=== PATIENT | female | born 1955 | race Caucasian/White ===

== ENCOUNTER → 2024-01-10 16:43 | Outpatient (REF) | payer BC, SELFPAY ==
[2024-01-10 17:32] LABS: % Eosinophils 1.8 % (0-6); % Immature Granulocytes 3.9 % (0-0.5); % Lymphocytes 15.1 % (20.5-51.1); % Monocytes 15.5 % (1.7-9.3); % Neutrophils 62.7 % (42.2-75.2); Absolute Basophils 0.1 10^3/uL (0-0.2); Absolute Eosinophils 0.1 10^3/uL (0-0.7); Absolute Immature Granulocytes 0.3 10^3/uL (0-0.05); Absolute Neutrophils 4.2 10^3/uL (1.4-6.5); Hematocrit 40.1 % (37.0-47.0); Hemoglobin 12.8 g/dL (12.0-16.0); Mean Corp Hgb Conc. 31.9 g/dL (33.0-37.0); Mean Corpuscular Hgb 28.8 pg (27.0-31.0); Mean Corpuscular Volume 90.3 fL (81.0-99.0); Mean Platelet Volume 10.7 fL (7.4-10.4); Nucleated Red Blood Cells % 0 %; Platelet Count 209 10^3/uL (130-400); Red Blood Cell Count 4.44 10^6/uL (4.20-5.40); Red Cell Dist. Width 14.5 % (11.5-14.5); White Blood Cell Count 6.7 10^3/uL (4.8-10.8)
== END ==
LOC: REG 16:43
PROVIDERS: FAMILY PHYSICIAN Family Medicine
DX: Z01.818 Encounter for other preprocedural examination (principal)
CPT/HCPCS: 36415; 85025

== ENCOUNTER 2024-01-15 20:50 | Emergency (ER) | payer BC, SELFPAY ==
[2024-01-15 20:52] VITALS: BP 161/90
[2024-01-15 21:21] VITALS: BMI 24.2
--- NOTE | 2024-01-15 21:33 | ED.GENMED ---
History of Present Illness
General
Chief Complaint: Swelling
Source: patient and spouse
Exam Limitations: none
Time Seen by Provider: 01/15/24 21:27
Nursing documentation reviewed up to this point in time: agreed with
History of Present Illness
History of Present Illness:
68-year-old female presents emergency department complaining of left leg swelling after breast augmentation 3 days ago in [facility]. She denies chest pain or shortness of breath. states there was a black and blue area on the back of
left knee.
Past History
Past History
ED Past Medical History: GERD (w/ ulcer), Other (Multiple sclerosis, multiple right-sided rib fractures with pneumothorax 2005) and Other (osteoarthritis, migraine headaches, neuropathy)
ED Past Surgical History: Appendectomy
Social History
Tobacco: Non-smoker
Alcohol: Occasional
Personal:
Living: with family
Employment: Employed
Family History
Family History: Other (Nontender)
Review of Systems
Review of Systems
Allergies reviewed?: Yes
All Other Systems: Not applicable
Constitutional: Reports no symptoms
EENT: Reports no symptoms
Respiratory: Reports no symptoms
Cardiac: Reports no symptoms
ABD/GI: Reports no symptoms
: Reports no symptoms
Musculoskeletal: Reports edema
Skin: Reports no symptoms
Neurological: Reports no symptoms
Endocrine: Reports no symptoms
Hematologic/Lymphatic: Reports no symptoms
Psychiatric: Reports no symptoms
Phy Exam
Physical Exam
Physical Exam:
Physical Exam
General: no apparent distress, not acutely ill
Neck: supple. no meningeal signs. normal posterior pharynx
Heart: s1/s2 regular rate and rhythm, no murmur. equal radial
pulses.
HEENT: Pupils equal round reactive to light, EOMI
Lungs: no acute respiratory distress. clear bilaterally
Abdomen: normal bowel sounds. not tender. no CVAT
Neuro: alert and oriented. no focal neurological deficits cranial nerves II through XII intact
Skin: no rash
Psychiatric: well kept. interactive and cooperative
Extremities: Mild bilateral pedal edema. no calf tenderness. negative homans. good distal pulses
Scores
Heart Failure Risk
Heart Failure Risk Score: Not Applicable
Course
Orders/Labs/Results
Orders:
Orders
01/15/24 20:54
US Legs, Bilateral [US Periph Venous LOWER Ext Max] Urgent
Comment:
Reason For Exam: b/l leg swelling and recent surgery
Vital Signs
Initial and Last Documented VS:
Initial Vital Signs
Temp Pulse Resp BP Pulse Ox
98.3 F 100 20 161/90 98
01/15/24 20:52 01/15/24 20:52 01/15/24 20:52 01/15/24 20:52 01/15/24 20:52
Last Documented Vital Signs
Temp Pulse Resp BP Pulse Ox
98.3 F 98 20 141/99 98
01/15/24 20:52 01/15/24 22:54 01/15/24 20:52 01/15/24 22:54 01/15/24 22:54
MDM/Problems Addressed
Differential Diagnosis Includes:
DVT, CHF
MDM/Problems Addressed:
68-year-old female with bilateral pedal edema, no signs of DVT. Clear lungs, no shortness of breath. Stable for discharge. Suspect dependent edema.
*Radiology
Radiology exam reviewed: radiology read reviewed (Ultrasound bilateral lower extremities no DVT)
*Pulse Oximetry
Patient hypoxic: no
*EKG
Interpreted by ED Provider?: NA
*Checkroom Attendant Interpretation
Rate: Checkroom Attendant- N/A
*Critical Care Note
Total Time (30-74mins, 75-104mins- exclusive of procedures): Not Applicable
Patient Management
Social determinants of health affecting care: Living situation and Strong social support
Escalation/DeEscalation of care consider admission/obs:
Admit not indicated
ED Attending Note
-
Portions of this chart may have been created with voice recognition software.� Occasional wrong word or��sound alike� substitutions may have occurred due to the inherent limitations of voice recognition software.
Discharge Plan
Departure
Patient Disposition: Home (Routine Discharge)
Date of Disposition: 01/15/24
Time of Disposition: 23:09
Patient with high blood pressure during this ER visit?: Yes
Condition: Good
Discharge Problem:
Dependent edema
Instructions: Dependent Edema (DC), BLOOD PRESSURE
Prescriptions:
No Action
Prempro
1 tab PO DAILY
Patient Comments:
pt does not know mg
Vitamin D
1 tab PO DAILY
Patient Comments:
pt does not know mg
multivitamin Tablet
1 tab PO DAILY
gabapentin 100 mg Capsule
100 mg PO HS
Vesicare
1 tab PO DAILY
Patient Comments:
pt does not know mg
Vitamin C
1 tab PO DAILY
Patient Comments:
pt does not know mg
calcium
1 tab PO DAILY
Patient Comments:
pt does not know mg
rizatriptan
1 tab PO PRN PRN (Reason: migraines)
Patient Comments:
pt does not know mg
ketorolac 10 mg Tablet
10 mg PO TID
oxycodone-acetaminophen 5-325 mg Tablet
1 - 2 tab PO Q4H PRN (Reason: pain)
cephalexin [Keflex] 500 mg Capsule
500 mg PO BID
Referrals:
Griffin Avila MD [Family Provider] - Call in 1-3 days for appt
Interventions
Interventions:
*Risk Screen - Suicide Last Done: 01/15/24 20:52
*General Assessment Last Done: 01/15/24 20:52
*Neglect/Abuse Screening Last Done: 01/15/24 20:52
*ED COVID-19 Vaccine History Last Done: 01/15/24 21:12
ED- Cardiac Assessment Last Done: 01/15/24 23:05
ED- Pulmonary Assessment Last Done: 01/15/24 21:27
ED-Skin Assessment Last Done: 01/15/24 21:27
Discharge Date and Time
Print Language: SYRIAC
[2024-01-15 22:54] VITALS: BP 141/99
[2024-01-15 23:17] VITALS: BP 134/96
== END 2024-01-15 23:26 | disposition home or self-care (01) ==
LOC: EMR 20:50
PROVIDERS: EMERGENCY PHYSICIAN Emergency Medicine; FAMILY PHYSICIAN Family Medicine
DX: R60.0 Localized edema (principal); R03.0 Elevated blood-pressure reading, without diagnosis of hypertension
CPT/HCPCS: 99284; 93970

== ENCOUNTER 2024-06-17 01:44 | Emergency (ER) | payer SELFPAY ==
[2024-06-17 01:49] VITALS: BP 155/85
[2024-06-17 04:19] VITALS: BMI 29.8
[2024-06-17 05:00] VITALS: BP 152/75
[2024-06-17] MEDS: MOTRIN 600 MG PO (06:55)
--- NOTE | 2024-06-17 06:55 | ED.GENMED ---
History of Present Illness
General
Chief Complaint: Fall
Source: patient and spouse
Time Seen by Provider: 06/17/24 06:02
History of Present Illness
History of Present Illness:
68-year-old female who presents after she fell about an hour prior to arrival. She states she cannot felt her left side and then her head went back. She suspect she did strike her head. Complains of some neck pain, pain in her left elbow and
contusion to the left hip. No loss of consciousness. States she just lost her balance. Mostly came to evaluate the wound on her left elbow. states that he was concerned about the laceration
Past History
Past History
ED Past Medical History: GERD (w/ ulcer), Other (Multiple sclerosis, multiple right-sided rib fractures with pneumothorax 2005) and Other (osteoarthritis, migraine headaches, neuropathy)
ED Past Surgical History: Appendectomy
Social History
Tobacco: Non-smoker
Alcohol: Occasional
Personal:
Living: with family
Employment: Employed
Family History
Family History: Other (Nontender)
Phy Exam
Physical Exam
Physical Exam:
CONSTITUTIONAL Vital signs reviewed, Patient alert and oriented to person, place and time. Well-appearing
HEAD atraumatic, normocephalic.
EYES eyelids normal to inspection, Extraocular muscles intact, Conjunctiva normal, Sclera normal.
NECK normal range of motion, Trachea midline, no jugular venous distention. Mild tenderness in the cervical paraspinal region.
RESP no respiratory distress
BACK No obvious deformities, no midline tenderness
UPPER EXTREMITY Gross Range of motion normal, gross motor strength normal. Tenderness to the olecranon process. 2 very small abrasions/lacerations that are well-approximated noted to the left elbow, no active bleeding
LOWER EXTREMITY Gross range of motion normal, Gross motor strength normal. Ecchymosis noted to the left greater trochanter region. Normal range of motion of the bilateral hip and knee
NEURO Speech normal, No focal motor deficits include, Uydy coma scale 15, Memory normal, Cranial Nerves intact to screening exam.
SKIN Skin warm, dry, and normal in color.
PSYCHIATRIC Patient oriented to person place and time, Normal affect.
Course
Orders/Labs/Results
Orders:
Orders
06/17/24 01:58
CT Cervical Spine W/o Iv Contr Urgent
Comment:
Reason For Exam: fell, struck L posterior head and 'jerked neck'
CT Head W/o Iv Contrast Urgent
Comment:
Reason For Exam: fell, struck L posterior head and 'jerked neck'
06/17/24 06:35
Ibuprofen [Motrin] 600 mg PO NOW STA
06/17/24 06:36
Elbow, 3 view, Left [CR Elbow - Left Min 3 Views ] Urgent
Comment:
Reason For Exam: fall
Vital Signs
Initial and Last Documented VS:
Initial Vital Signs
Temp Pulse Resp BP Pulse Ox
98.6 F 74 16 155/85 100
06/17/24 01:49 06/17/24 01:49 06/17/24 01:49 06/17/24 01:49 06/17/24 01:49
Last Documented Vital Signs
Temp Pulse Resp BP Pulse Ox
98.6 F 74 16 152/75 98
06/17/24 01:49 06/17/24 01:49 06/17/24 01:49 06/17/24 05:00 06/17/24 05:45
MDM/Problems Addressed
MDM/Problems Addressed:
Elbow contusion, hip contusion, head injury, cervical strain
*Radiology
Radiology exam reviewed: radiology read reviewed and all reviewed NAD by ED Provider
*Pulse Oximetry
Patient hypoxic: no
*Critical Care Note
Total Time (30-74mins, 75-104mins- exclusive of procedures): Not Applicable
Data Reviewed
Source: patient and spouse
Patient Management
Escalation/DeEscalation of care consider admission/obs:
Imaging negative. Patient appears well. Trial some muscle laxation for neck discomfort related to strain. Okay for discharge. Wounds do not need to be repaired
ED Attending Note
-
Portions of this chart may have been created with voice recognition software.� Occasional wrong word or��sound alike� substitutions may have occurred due to the inherent limitations of voice recognition software.
Discharge Plan
Departure
Patient Disposition: Home (Routine Discharge)
Date of Disposition: 06/17/24
Time of Disposition: 06:55
Patient with high blood pressure during this ER visit?: Yes
Discharge Problem:
Head injury, Contusion of elbow, Contusion of hip, Abrasion
Instructions: Wound Care (DC), Head Injury in Adults (DC), Contusion (DC), Skin Abrasions (DC), BLOOD PRESSURE
Prescriptions:
New
cyclobenzaprine 10 mg tablet
10 mg PO TID PRN (Reason: muscle spasm) Qty: 10 0RF
No Action
Prempro
1 tab PO DAILY
Patient Comments:
pt does not know mg
Vitamin D
1 tab PO DAILY
Patient Comments:
pt does not know mg
multivitamin Tablet
1 tab PO DAILY
gabapentin 100 mg Capsule
100 mg PO HS
Vesicare
1 tab PO DAILY
Patient Comments:
pt does not know mg
Vitamin C
1 tab PO DAILY
Patient Comments:
pt does not know mg
calcium
1 tab PO DAILY
Patient Comments:
pt does not know mg
rizatriptan
1 tab PO PRN PRN (Reason: migraines)
Patient Comments:
pt does not know mg
ketorolac 10 mg Tablet
10 mg PO TID
oxycodone-acetaminophen 5-325 mg Tablet
1 - 2 tab PO Q4H PRN (Reason: pain)
cephalexin [Keflex] 500 mg Capsule
500 mg PO BID
Referrals:
Griffin Avila MD [Family Provider] -
Activity Restrictions/Additional Instructions:
Please ice your injuries. Please rest. Use ibuprofen for pain as needed. Please follow-up with your doctor in the next 1 week for follow-up and reevaluation.
Interventions
Interventions:
*Risk Screen - Suicide Last Done: 06/17/24 04:19
*General Assessment Last Done: 06/17/24 04:19
*Neglect/Abuse Screening Last Done: 06/17/24 04:19
ED- Fall Risk Assessment Last Done: 06/17/24 04:19
*ED COVID-19 Vaccine History Last Done: 06/17/24 04:19
*Nursing Disposition Last Done: 06/17/24 07:06
ED-Musculoskeletal Assessment Last Done: 06/17/24 04:19
ED- Neurological Assessment Last Done: 06/17/24 04:19
ED-Skin Assessment Last Done: 06/17/24 04:25
Discharge Date and Time
Discharge Date/Time: 06/17/24 07:08
Print Language: HEBREW
== END 2024-06-17 07:08 | disposition home or self-care (01) ==
LOC: EMR 01:44
PROVIDERS: EMERGENCY PHYSICIAN Emergency Medicine; FAMILY PHYSICIAN Family Medicine
DX: S50.02XA Contusion of left elbow, initial encounter (principal); S70.02XA Contusion of left hip, initial encounter; S09.90XA Unspecified injury of head, initial encounter; S50.312A Abrasion of left elbow, initial encounter; S16.1XXA Strain of muscle, fascia and tendon at neck level, initial encounter; W19.XXXA Unspecified fall, initial encounter; G35 Multiple sclerosis; K21.9 Gastro-esophageal reflux disease without esophagitis
CPT/HCPCS: 99284; 70450; 72125; 73080

== ENCOUNTER 2024-06-20 16:37 | Inpatient (IN) | payer OTHER, SELFPAY ==
[2024-06-20] VITALS (7 sets, daily range): BP systolic 82–124; BP diastolic 46–60; BMI 24.6; BMI 24.2
--- NOTE | 2024-06-20 13:32 | ED.GENMED ---
History of Present Illness
General
Chief Complaint: Fever
Time Seen by Provider: 06/20/24 13:15
History of Present Illness
History of Present Illness:
68-year-old female history of migraines, MS presenting with generalized fatigue. Patient states that she lost her balance and fell on Wednesday, June 16 injuring her left elbow. Patient states that she was seen around Wednesday when she had a
negative workup and was discharged. Patient reports increasing pain, swelling, and discharge from the left elbow. Daughter at bedside states that patient has been more confused over the past few days. Patient reports malodorous urine for the past
1.5 weeks but denies any dysuria or hematuria. Patient states that she was seen by PCP who prescribed an antibiotic which she took prior to arrival but immediately vomited afterwards. Per patient, she had difficulty walking and needed a wheelchair
to get back to her car. Patient also states that patient's has been pulling patient on her rug to get to the bathroom. Patient denies numbness, focal weakness, or tingling. Patient denies cough, chest pain, shortness of breath, or
abdominal pain.
Past History
Past History
ED Past Medical History: GERD (w/ ulcer), Other (Multiple sclerosis, multiple right-sided rib fractures with pneumothorax 2005) and Other (osteoarthritis, migraine headaches, neuropathy)
ED Past Surgical History: Appendectomy
Social History
Tobacco: Non-smoker
Alcohol: Occasional
Personal:
Living: with family
Employment: Employed
Family History
Family History: Other (Nontender)
Phy Exam
Physical Exam
Physical Exam:
General: Alert, no acute distress, warm to touch
Head: NCAT
Eyes: clear conjunctiva
Neck: supple
Cardiac: Tachycardic, regular rhythm, no murmur
Lungs: clear to auscultation bilaterally. No wheezes, rales, or rhonchi. Speaking full unlabored sentences. No respiratory distress.
Abdomen: soft, nondistended nontender. No rebound or guarding.
MSK: Open wound to left olecranon draining serous drainage with surrounding erythema, increased warmth, and edema. No overlying fluctuance. Full range of motion left elbow with no reported pain. 2+ left radial pulse. No lower extremity edema
bilaterally.
Skin: warm, dry
Neuro: Alert and oriented x3. no focal deficits
Sepsis
Sepsis Screening
Sepsis Assessment: Sepsis
Sepsis Screen
Sepsis Screen: Sepsis
Date: 06/20/24
Time: 20:14
Course
Orders/Labs/Results
Orders:
Orders
06/20/24 Breakfast
Regular
At Your Request: Full Participation
Does patient need a safe tray?: No
06/20/24 13:29
Complete Blood Count/With Diff Urgent
Comprehensive Metabolic Panel Urgent
Lactic Acid Urgent
TSH Reflex To Free T4 Urgent
Blood Culture Urgent
BETO Source: Blood/Venous
Specimen Description:
Wound/Abscess/Other Culture Urgent
BETO Source: Elbow
Specimen Description: Left
Date Specimen was Collected: 06/20/24
Time Specimen was Collected: 13:27
Comment: left elbow wound
Acetaminophen [Tylenol] 1,000 mg PO NOW STA
Elbow, Left, 2 View [CR Elbow - Left Min 2 View] Urgent
Comment:
Reason For Exam: pain, swelling, erythema
06/20/24 13:30
EKG [Electrocardiogram (*1)] Urgent
Reason for Study: Tachycardia
EKG- Treatment ONCE
0.9% Sodium Chloride 1000 ml [Nss] 1,000 ml IV BOLUS
06/20/24 13:31
CXR2 [CR Chest - 2 Views ] Urgent
Comment:
Reason For Exam: fever
06/20/24 13:54
Vancomycin [Vancocin] 1,500 mg 0.9% Sodium Chloride 500 ml [Nss] 500 ml IV NOW
06/20/24 14:31
0.9% Sodium Chloride 1000 ml [Nss] 1,000 ml IV BOLUS
06/20/24 14:47
Blood Culture Urgent
BETO Source: Blood/Venous
Specimen Description:
06/20/24 16:21
Admit/Transfer Patient As Directed
Co-Sign Provider:
Level of Care: Inpatient admission
Assign to:: Telemetry
Physician / Group: yeison
Diagnosis: left elbow cellulitis
Reason for Telemetry: Other
Other Reason for Telemetry: sepsis
Date to Stop Telemetry: 06/22/24
Time to Stop Telemetry: 11:00
Reason for Hospitalization: sepsis
Expected length of stay greater than two midnights?: Yes
ELOS- Estimated Length of Stay in days: 3
I certify the patient meets the requirements for IP care: Yes
06/20/24 16:22
PRN Pain Medication Management As Directed
May give lesser potent ordered pain med per pt: Yes
preference::
Protocol:: Medication orders for pain may be administered in a
manner that supports deferring to patient preference
when the pt is:
- Requesting an ordered lesser potent pain medication.
Least to most potent pain medications are defined
as: acetaminophen < NSAID < tramadol < opioids
(morphine, oxycodone, hydromorphone).
- Requesting a lesser dose of the same medication IF
ORDERED.
- Requesting a less intrusive route of administration
if both routes are prescribed by the provider (PO <
IV).
06/20/24 16:23
Code Status As Directed
Resuscitation Status: Full Code
06/20/24 16:26
COVID-19 Antigen Stat
Source: Nasal Swab
Influenza A+B Rapid Molecular Stat
BETO Source: Nasal Swab
Specimen Description:
06/20/24 17:56
Lactic Acid Q4H
Comment: repeat q4 hours x 4 or until less than 2 mmol/L
0.9% Sodium Chloride 1000 ml [Nss] 1,000 ml IV 125 mls/hr
Acetaminophen [Tylenol/Feverall] 650 mg RECTAL Q4HPRN PRN
Acetaminophen [Tylenol] 650 mg PO Q4HPRN PRN
06/20/24 17:56
Activity As Directed
Activity Level: As Tolerated
Intake/ Output As Directed
Frequency: Per unit guidelines
Pneumatic Compression Sleeves As Directed
Type: Thigh high
Vital Signs As Directed
Frequency: Per unit guidelines
DX Deep Vein Thrombosis Video Routine
06/20/24 21:56
Lactic Acid Q4H
Comment: repeat q4 hours x 4 or until less than 2 mmol/L
06/20/24 22:00
Gabapentin [Neurontin] 200 mg PO HS
06/21/24 01:56
Lactic Acid Q4H
Comment: repeat q4 hours x 4 or until less than 2 mmol/L
06/21/24 06:00
BMP [Basic Metabolic Panel] IN AM
Complete Blood Count/No Diff IN AM
06/21/24 08:00
Estradiol [Estrace] 1 mg PO DAILY
Medroxyprogesterone [Provera] 10 mg PO DAILY
Tolterodine Extended Release [Detrol LA] 4 mg PO DAILY
06/22/24 06:00
BMP [Basic Metabolic Panel] IN AM
Complete Blood Count/No Diff IN AM
06/22/24 11:00
DC Protocol for Telemetry ONCE
06/23/24 06:00
BMP [Basic Metabolic Panel] IN AM
Complete Blood Count/No Diff IN AM
06/24/24 06:00
BMP [Basic Metabolic Panel] IN AM
Complete Blood Count/No Diff IN AM
Abnormal Lab Results
06/20/24
13:29
WBC 11.7 H 10^3/uL
(4.8-10.8)
MCHC 32.1 L g/dL
(33.0-37.0)
RDW 14.8 H %
(11.5-14.5)
MPV 10.9 H fL
(7.4-10.4)
Abs Immat Gran (auto) 0.1 H 10^3/uL
(0-0.05)
Absolute Neuts (auto) 10.5 H 10^3/uL
(1.4-6.5)
Absolute Lymphs (auto) 0.2 L 10^3/uL
(1.2-3.4)
Absolute Monos (auto) 0.8 H 10^3/uL
(0.1-0.6)
Immature Gran % 0.8 H %
(0-0.5)
Neutrophils % 89.7 H %
(42.2-75.2)
Lymphocytes % 2.0 L %
(20.5-51.1)
Sodium 133 L mmol/L
(135-145)
BUN 38 H mg/dl
(7-17)
Glucose 162 H mg/dl
(70-99)
Lactic Acid 2.5 H mmol/L
(0.7-2.0)
06/20/24 13:29
06/20/24 13:29
Vital Signs
Initial and Last Documented VS:
Initial Vital Signs
Temp Pulse Resp BP Pulse Ox
103.7 F H 123 18 124/60 98
06/20/24 13:07 06/20/24 13:07 06/20/24 13:07 06/20/24 13:07 06/20/24 13:07
Last Documented Vital Signs
Temp Pulse Resp BP Pulse Ox
98.8 F 104 16 82/50 98
06/20/24 19:40 06/20/24 19:40 06/20/24 19:40 06/20/24 19:40 06/20/24 19:40
MDM/Problems Addressed
Differential Diagnosis Includes:
Cellulitis, UTI, bacteremia, VEDA, electrolyte abnormality, MS exacerbation from sepsis
MDM/Problems Addressed:
68-year-old female presenting with increased erythema, edema, and discharge from left posterior elbow for the past few days. Patient states that she has been having difficulty ambulating secondary to generalized fatigue. Patient states that she
followed up with her PCP today who prescribed antibiotic for cellulitis left elbow, but immediately vomited after taking medication. On arrival patient febrile, tachycardic. Left elbow open wound draining serous drainage with surrounding erythema
and edema. Will treat with vancomycin. Patient also reports malodorous urine for the past 1.5 weeks and history of UTIs. Ordered UA
Labs reviewed, WBC 11.7 with left shift, lactate 2.5. CXR shows no pneumonia. Xray left elbow shows Diffuse soft tissue swelling and subcutaneous edema. Posterior soft tissue air. This could be from an open laceration, but raises concern for air
forming infection within the posterior soft tissues. No evidence for bony destruction. No radiographic evidence for significant left elbow joint effusion. As read by radiology. Higher suspicion for soft tissue air from open wound overlying
olecranon. Discussed with hospitalist for admission
*EKG
Interpreted by ED Provider?: Yes (EKG shows sinus tachycardia at 122 bpm with DC 130 QTc 498 no acute ischemic changes)
*Critical Care Note
Total Time (30-74mins, 75-104mins- exclusive of procedures): Not Applicable
ED Attending Note
-
Portions of this chart may have been created with voice recognition software.� Occasional wrong word or��sound alike� substitutions may have occurred due to the inherent limitations of voice recognition software.
Discharge Plan
Departure
Patient Disposition: Admit
Date of Disposition: 06/20/24
Time of Disposition: 15:49
Presentation/result/management discussed w/ accepting MD/DO: Hospitalist
Patient with high blood pressure during this ER visit?: No
Discharge Problem:
Cellulitis of left elbow
Interventions
Interventions:
*Risk Screen - Suicide Last Done: 06/20/24 13:07
*General Assessment Last Done: 06/20/24 13:07
*Neglect/Abuse Screening Last Done: 06/20/24 13:07
ED- Fall Risk Assessment Last Done: 06/20/24 13:35
*ED COVID-19 Vaccine History Last Done: 06/20/24 13:07
*Nursing Disposition Last Done: 06/20/24 17:38
ED- Neurological Assessment Last Done: 06/20/24 13:35
ED-Skin Assessment Last Done: 06/20/24 13:35
Discharge Date and Time
Discharge Date/Time: 06/20/24 17:38
[2024-06-20 13:46] LABS: % Basophils 0.3 % (0-2); % Immature Granulocytes 0.8 % (0-0.5); % Monocytes 7.2 % (1.7-9.3); % Neutrophils 89.7 % (42.2-75.2); Absolute Immature Granulocytes 0.1 10^3/uL (0-0.05); Absolute Lymphocytes 0.2 10^3/uL (1.2-3.4); Absolute Monocytes 0.8 10^3/uL (0.1-0.6); Absolute Neutrophils 10.5 10^3/uL (1.4-6.5); Hematocrit 38.9 % (37.0-47.0); Hemoglobin 12.5 g/dL (12.0-16.0); Mean Corp Hgb Conc. 32.1 g/dL (33.0-37.0); Mean Corpuscular Hgb 29.1 pg (27.0-31.0); Mean Corpuscular Volume 90.5 fL (81.0-99.0); Mean Platelet Volume 10.9 fL (7.4-10.4); Nucleated Red Blood Cells % 0 %; Platelet Count 175 10^3/uL (130-400); Red Cell Dist. Width 14.8 % (11.5-14.5); White Blood Cell Count 11.7 10^3/uL (4.8-10.8)
[2024-06-20 13:56] LABS: ALT (SGPT) 17 U/L (0-35); AST (SGOT) 21 U/L (14-36); Albumin 3.8 g/dl (3.5-5.0); Alkaline Phosphatase 63 U/L (38-126); Blood Urea Nitrogen 38 mg/dl (7-17); Calcium 8.7 mg/dl (8.4-10.2); Carbon Dioxide 22 mmol/L (22-30); Chloride 98 mmol/L (98-107); Estimated Creatinine Clearance 42 ml/min; Glucose 162 mg/dl (70-99); Potassium 3.9 mmol/L (3.5-5.1); Sodium 133 mmol/L (135-145); Total Protein 6.4 g/dl (6.3-8.2); eGFR > 60.00
[2024-06-20 13:57] LABS: Lactic Acid 2.5 mmol/L (0.7-2.0)
[2024-06-20] MEDS: VANCOCIN 530 MG IV (14:37)
[2024-06-20] MEDS: TYLENOL 1000 MG PO (14:37)
[2024-06-20] MEDS: NSS 1000 IV ×2 (14:38→18:49)
[2024-06-20 15:35] LABS: TSH Reflex To Free T4 0.56 uIU/ml (0.47-4.68)
--- NOTE | 2024-06-20 15:56 | HPS.HSE ---
Addendum entered and electronically signed by Marifer Cooper DO 06/20/24 21:11:
The patient was seen and examined. I discussed the patient with Griselda, DRIVING TEACHER, and agree with her history and physical, assessment and plan of care as per below, with the following additions:
The patient has redness and swelling to the left elbow, with drainage. Fever high of 103.7 in ED, now 98.8. HR currently 97 bpm.
Left elbow is wrapped, dressing c/d/i
CV RRR, no m/r/r
Ext normal pulses, no neurovascular compromise, redness/swelling from elbow to wrist/fingers, with red tracking to wrist level, good pulses radial, fingers warm
Concern is for elbow cellulitis with sepsis and lymphangitic spread, s/p 2 liter bolus IVF , cont at 125 mL per hour
-blood cx pending
-CT elbow
-Consult to ID and Orthopedics
-cont broad spectrum IV abx Vanco as per ID recommendations
-monitor hemodynamics
-elevate and ice LUE
Original Note:
Family Physician
-
Family Physician: Griffin Avila
Chief Complaint
-
left elbow cellulitis.
History of Present Illness
68-year-old female history of migraines, MS presenting with generalized fatigue. Patient states that she lost her balance and fell on Wednesday, June 16 injuring her left elbow. she hit her head on the floor as well. Patient states that she was
seen around Wednesday when she had a negative workup and was discharged. Patient reports increasing pain, swelling, and discharge from the left elbow. Patient reports malodorous urine for the past 1.5 weeks but denies any dysuria or hematuria.
Patient states that she was seen by PCP who prescribed clindamycin. Per patient, she had difficulty walking, which she thought could be from MS flare. she took a dose of clinda, but vomited. she had temp of 103a t home. her left arm is swollen,
with yellow discharge from her left elbow. patient stated poor appetite. Patient denies cough, chest pain, shortness of breath, abdominal pain.
patient received iv vanco in ER. admitting for further management.
Medical History
Past Medical History
Past Medical History: Reports Other
Additional Past Medical History:
Multiple sclerosis
Pneumothorax
Osteoarthritis
Migraine headaches
Neuropathy
Past Surgical History: Reports Other
Additional Past Surgical History:
Appendectomy
Social History
Tobacco: Non-smoker
Alcohol: None
Drug: None
Personal:
Living: With Family
Family History
Family History: Not pertinent
Allergies / Home Medications
Allergies reflects when Allergies were last updated in [facility].
Home Medications with original date entered in [facility]
Allergy/Medication List:
Allergies
Allergy/AdvReac Type Severity Reaction Status Date / Time
Penicillins Allergy Hives Verified 06/20/24 13:10
Home Medications
cholecalciferol (vitamin D3) 25 mcg (1,000 unit) tablet (Vitamin D3) 25 mcg PO DAILY 03/04/14
medroxyprogesterone 10 mg tablet 10 mg PO DAILY 03/04/14
ascorbic acid (vitamin C) 500 mg tablet (Vitamin C) 500 mg PO DAILY 01/15/24
calcium carbonate 500 mg PO DAILY 01/15/24
gabapentin 100 mg capsule 100 - 200 mg PO HS 01/15/24
rizatriptan 10 mg disintegrating tablet 10 mg PO DAILYPRN PRN migraine 01/15/24
solifenacin 10 mg tablet 10 mg PO DAILY 01/15/24
ipofohr-inxlszkbrthhe-jsgmgcue 250 mg-250 mg-65 mg tablet (Excedrin Migraine) 2 tab PO Q6HPRN PRN headache/migraine 06/20/24
clindamycin HCl 300 mg capsule 300 mg PO TID 06/20/24
estradiol 1 mg tablet 1 mg PO DAILY 06/20/24
ibuprofen 200 mg tablet (Advil) 400 mg PO Q8HPRN PRN mild pain/fever 06/20/24
magnesium oxide 400 mg PO DAILY 06/20/24
therapeutic multivitamin 1 tab PO DAILY 06/20/24
Review of Systems
-
Constitutional: Reports No Symptoms
EENT: Reports No Symptoms
Respiratory: Reports No Symptoms
Cardiac: Reports No Symptoms
Abdomen/GI: Reports No Symptoms
: Reports No Symptoms
Musculoskeletal: Reports No Symptoms
Skin: Reports Other (left arm swollen, red, warm to touch. draining yellowish )
Neurological: Reports No Symptoms
Endocrine: Reports No Symptoms
Hematologic/Lymphatic: Reports No Symptoms
Psych: Reports No Symptoms
Physical Exam
Vital Signs
Vital Signs
Temp Pulse Resp BP Pulse Ox
98.5 F 123 22 108/46 99
06/20/24 14:00 06/20/24 14:00 06/20/24 14:00 06/20/24 14:00 06/20/24 14:00
Physical Exam
General: Well Developed, Well Nourished and No Apparent Distress
HEENT: NormoCephalic, Moist mucous membranes and Atraumatic
Respiratory: Clear
Cardiac: S1/S2 and Regular Rhythm; No Murmur or Rub
GI: Soft, Non Tender, Non Distended and Normal Bowel Sounds; No Organomegaly
Rectal: Deferred by Provider
Musculoskeletal: No Clubbing, No Cyanosis and Other
Skin: Rash and Other (left arm red, swollen, warm to touch)
Neuro: AO x 3 and Nonfocal/grossly intact
Psych: Calm
Laboratory Results
-
06/20/24 13:29
06/20/24 13:29
Laboratory Results
Lactic Acid 2.5 mmol/L (0.7-2.0) H 06/20/24 13:29
Total Bilirubin 1.0 mg/dl (0.2-1.3) 06/20/24 13:29
AST 21 U/L (14-36) 06/20/24 13:29
ALT 17 U/L (0-35) 06/20/24 13:29
Alkaline Phosphatase 63 U/L (38-126) 06/20/24 13:29
Data Reviewed
-
Diagnostic Radiology: Report Reviewed by me
Lab Data: Labs Reviewed by me
Impression/Plan
-
# Sepsis likely related to left elbow wound cellulitis
-Sepsis as evidenced by tachycardia, fever 103.7, WBCs 11.7, lactic 2.5
-Vancomycin continued
-UA pending, chest x-ray negative for acute infection
-Elbow x-ray with impression of Diffuse soft tissue swelling and subcutaneous edema.Posterior soft tissue air. This could be from an open laceration, but raises concern for air forming infection within the posterior soft tissues.No evidence for bony
destruction. No radiographic evidence for significant left elbow joint effusion.
- Blood and wound culture sent from ER
-ID consulted
# Multiple sclerosis
# DVT prophylaxis
-SCDs
# CODE STATUS
-Full code
[2024-06-20 17:24] LABS: COVID-19 Antigen Negative (Negative)
--- NOTE | 2024-06-20 19:35 | PHA.VAN.IN ---
Assessment
- Assessment
Renal Function: Appears elevated from baseline (07/25/20 BASELINE SCR: 0.7)
Concomitant Antimicrobials: NONE
- Previous Dosing Experience
Previous Regimen: NONE
AUC Dosing Plan
- Dosing Variables
Dosing Weight (kg): 59.9
Dosing CrCl (ml/min): 42
Vd coefficient (L/kg): 0.7
- Empiric Dosing
Initial / Loading Dose: 1500MG
Maintenance Regimen: 750MG IV Q24H
Estimated AUC (mcg*h/mL): 465
Estimated Peak (mcg*h/mL): 29.3
Estimated Trough (mcg/ml): 11.9
Estimated Half Life (H): 17.7
Pharmacokinetics Vancomycin I
- -
Patient Age: 68
Patient Sex: Female
Vancomycin Day #: 1
Indication: Skin And Soft Tissue (SEPSIS)
Requesting Provider: ZANDER
Pertinent Antimicrobial Allergies:
Allergies
Penicillins Allergy (Verified 06/20/24 13:10)
Hives
Height / Weight:
Height 5 ft 2 in
Actual Weight 59.959 kg
Pertinent Past Medical History: MS
- Vital Signs / Lab Results
Temp Pulse Resp BP Pulse Ox
98.0 F 112 18 96/56 97
06/20/24 17:56 06/20/24 17:56 06/20/24 17:56 06/20/24 17:56 06/20/24 17:56
Lab Results - Hematology
06/20/24
13:29
WBC 11.7 H
Lab Results - Chemistry
06/20/24
13:29
BUN 38 H
Creatinine 1.0
Estimated Creat Clear 42
Albumin 3.8
06/20/24
13:29
Lactic Acid 2.5 H
Lab Results - Urine
06/20/24
13:31
Urine Nitrite (Reflex) Cancelled
Leukocyte Esterase Rfl Cancelled
Microbiology Results
06/20/24 16:26 Influenza Types A & B (ELÍAS) - Final
Nasal Swab Negative for Influenza A & B, NAAT
Negative results must be combined with clinical observations
and patient history.
Nucleic Acid Amplification test (NAAT)performed on the
[employer] platform.
06/20/24 13:29 Gram Stain - Preliminary
Elbow - Left
[2024-06-20 20:24] LABS: Lactic Acid 1.7 mmol/L (0.7-2.0)
[2024-06-20] MEDS: NEURONTIN 200 MG PO (21:14)
[2024-06-20 21:38] LABS: Urine Albumin 1+ (Neg - Trace); Urine Bilirubin Negative (Negative); Urine Character Very Cloudy (Clear); Urine Color Yellow; Urine Glucose Negative (Negative); Urine Ketone Negative (Negative); Urine Leukocyte 2+ (Negative); Urine Nitrite Negative (Negative); Urine Occult Blood 4+ (Negative); Urine Urobilinogen Negative (Neg - 1+)
[2024-06-20 21:58] LABS: Urine Squamous Cell >30 /LPF (Few); Urine White Cell 50-60 /HPF (0-5)
[2024-06-20 21:59] LABS: Urine Bacteria Many (Negative)
[2024-06-21] VITALS (13 sets, daily range): BP systolic 92–143; BP diastolic 54–83
[2024-06-21] MEDS: VANCOCIN 150 IV (06:21)
[2024-06-21] MEDS: TYLENOL 650 MG PO (06:28)
[2024-06-21 07:00] LABS: Hematocrit 31.6 % (37.0-47.0); Hemoglobin 10.2 g/dL (12.0-16.0); Mean Corp Hgb Conc. 32.3 g/dL (33.0-37.0); Mean Corpuscular Hgb 29.1 pg (27.0-31.0); Mean Corpuscular Volume 90.3 fL (81.0-99.0); Mean Platelet Volume 10.2 fL (7.4-10.4); Platelet Count 144 10^3/uL (130-400); White Blood Cell Count 10.7 10^3/uL (4.8-10.8)
--- NOTE | 2024-06-21 07:49 | CON.MD ---
Addendum entered and electronically signed by Giles Thompson MD 06/21/24 09:42:
Full consult [id number]
Original Note:
Consultation - Medical
-
Full consult to follow
Left elbow wound after fall. Diffuse erythema, warmth and drainage from the olecranon bursa
Patient has septic olecranon bursitis
Will need surgical I&D
Consent in chart
Will proceed with surgery later today
NPO
[2024-06-21] MEDS: ESTRACE 1 MG PO (08:02)
[2024-06-21] MEDS: PROVERA 10 MG PO (08:02)
[2024-06-21] MEDS: DETROL LA 4 MG PO (08:02)
[2024-06-21 08:05] LABS: Blood Urea Nitrogen 33 mg/dl (7-17); Calcium 7.9 mg/dl (8.4-10.2); Carbon Dioxide 17 mmol/L (22-30); Chloride 108 mmol/L (98-107); Estimated Creatinine Clearance 52 ml/min; Glucose 114 mg/dl (70-99); Potassium 3.2 mmol/L (3.5-5.1); Sodium 136 mmol/L (135-145); eGFR > 60.00
--- NOTE | 2024-06-21 09:06 | PHA.VAN.FU ---
Vancomycin Assessment / Plan
- Assessment
Renal Function: SCR Decreasing (SCr 1.0->0.8 , no baseline information)
WBC's are: WNL
In the past 24 hrs, patient has been: Febrile (103.7 on admission)
- Dosing Plan
Adjust Regimen to: vanc 1000mg q24 starting 12/12 am
New Regimen Predicts: AUC (513), Peak (35), Trough (11.7)
- Monitoring Plan
No level(s) ordered at this time: consider in the upcoming days
- Follow Up
Pharmacy will continue to follow.
Vancomycin Follow UP
- -
Patient Age: 68
Patient Sex: Female
Vancomycin Day #: 2
Indication: Skin And Soft Tissue (cellulitis of olecranon bursa)
Requesting Provider: BERNARDO Colón
Pertinent Antimicrobial Allergies:
Penicillins Allergy - hives
Height / Weight:
Height 5 ft 2 in
Actual Weight 59.959 kg
Pertinent Past Medical History: MS
- Vital Signs / Lab Results
Temp Pulse Resp BP Pulse Ox
98.3 F 92 19 97/54 98
06/21/24 07:15 06/21/24 07:15 06/21/24 07:15 06/21/24 07:15 06/21/24 07:15
Lab Results - Hematology
06/20/24 06/21/24
13:29 06:51
WBC 11.7 H 10.7
Lab Results - Chemistry
06/20/24 06/21/24
13:29 06:51
BUN 38 H 33 H
Creatinine 1.0 0.8
Estimated Creat Clear 42 52
Albumin 3.8
06/20/24 06/20/24 06/20/24
13:29 20:03 21:56
Lactic Acid 2.5 H 1.7 Cancelled
06/21/24
01:56
Lactic Acid Cancelled
Lab Results - Urine
06/20/24 06/20/24
13:31 21:19
Urine Nitrite (Reflex) Cancelled Negative
Leukocyte Esterase Rfl Cancelled 2+ A
Ur Squamous Epith Cells >30
Microbiology Results
06/20/24 16:26 Influenza Types A & B (ELÍAS) - Final
Nasal Swab Negative for Influenza A & B, NAAT
Negative results must be combined with clinical observations
and patient history.
Nucleic Acid Amplification test (NAAT)performed on the
[employer] platform.
06/20/24 13:29 Gram Stain - Preliminary
Elbow - Left
[2024-06-21] MEDS: NSS 1000 IV ×2 (11:01→22:11)
--- NOTE | 2024-06-21 11:41 | W.PN.HOSP.TC ---
Addendum entered and electronically signed by Tl Richard MD 06/21/24 14:16:
Addendum
Spoke with radiologist, CT will not be helpful, recommend MRI if needed
I reviewed Ortho note, will f/w I & D . No indication for MRI
End
Addendum entered and electronically signed by Tl Richard MD 06/21/24 12:30:
Hypokalemia
Original Note:
Today's Communication/Plan
-
Add Rocephin
NPO for OR
No need for CT, d/w radiologist
Assessment / Plan
Assessment / Plan
Physical Exam
General: Well Developed, Well Nourished and No Apparent Distress
HEENT: NormoCephalic, Moist mucous membranes and Atraumatic
Respiratory: Clear
Cardiac: S1/S2 and Regular Rhythm; No Murmur or Rub
GI: Soft, Non Tender, Non Distended and Normal Bowel Sounds; No Organomegaly
Rectal: Deferred by Provider
Musculoskeletal: No Clubbing, No Cyanosis and Other
Skin: Rash and Other (left arm red, swollen, warm to touch)
Neuro: AO x 3 and Nonfocal/grossly intact
Psych: Calm
68-year-old female history of migraines, MS presenting with generalized fatigue. Patient states that she lost her balance and fell on Wednesday, June 16 injuring her left elbow but later had increasing pain, swelling, and discharge from the left
elbow.
# Left septic olecranon bursitis
-Sepsis as evidenced by tachycardia, fever 103.7, WBCs 11.7, lactic 2.5 but seems to resolve
-Vancomycin continued
-Elbow x-ray with impression of Diffuse soft tissue swelling and subcutaneous edema.Posterior soft tissue air. This could be from an open laceration, but raises concern for air forming infection within the posterior soft tissues.No evidence for bony
destruction. No radiographic evidence for significant left elbow joint effusion.
- Blood and wound culture sent from ER
-ID & ortho consulted, appreciate help
For OR I&D by Ortho today, she is NPO
# Suspect UTI with
Add IV Rocephin
f/w urine culture
# Multiple sclerosis
Primary neurologist at [facility]
# DVT prophylaxis
-SCDs
# CODE STATUS
-Full code
Total time spent to see the patient on the floor, examine the patient, review data and lab results, discuss treatment plan with patient, nursing staff around 55 minutes.
Anticipated Discharge: > 48 hours
Subjective/Interval History
-
Date of Service: June 21, 2024
No chest pain
No sob
No fevers
Objective Data
-
Labs:
Laboratory Results
06/21/24
06:51
WBC 10.7
Hgb 10.2 L
Hct 31.6 L
Plt Count 144
Sodium 136
Potassium 3.2 L
Chloride 108 H
Carbon Dioxide 17 L
BUN 33 H
Creatinine 0.8
Glucose 114 H
Calcium 7.9 L
Vital Signs:
Vital Signs
Temp Pulse Resp BP Pulse Ox
98.0 F 101 18 92/57 98
06/21/24 11:09 06/21/24 11:09 06/21/24 11:09 06/21/24 11:09 06/21/24 11:09
I&O
06/20/24 06/21/24 06/22/24
06:59 06:59 06:59
Intake Total 480 / 480
Balance 480 / 480
[2024-06-21] MEDS: ROCEPHIN 1000 MG IV (12:08)
[2024-06-21] MEDS: STERILE WATER FOR INJECTION 10 ML IV ×3 (12:09→23:12)
[2024-06-21] MEDS: KCL 270 MEQ IV (12:57)
--- NOTE | 2024-06-21 13:16 | CON.ID ---
Addendum entered and electronically signed by Patience Hogan MD 06/21/24 17:33:
contacted by Dr Thompson with concern for dishwater fluid from the OR, possible nech fash
s pyogenes known to cause a monomicrobial nech fash
while awaiting cultures from the OR will switch CTX to meropenem given h/o hives with penicillin. continue to clindamycin and vancomycin
AW
Original Note:
Consultation
-
Date/Time Consultation Requested: 06/20/24 17:01
Date/Time Consultation Performed: 06/20/24 13:17
Requesting Provider: Ramirez BLUNT
Performing Provider: Dr Hogan
Reason for Consultation: septic bursitis
Chief Complaint / Past History
Chief Complaint
left elbow cellulitis.
History of Present Illness
Ms Grove is a 68 year old female with history of Multiple Scerlosis (relapsing remitting currently in remission last copaxone 5-6 years ago) who presented here after she lost her balance and feel on the L elbow and hit her head. She later
developed increasing pain, swelling and yellow discharge from the L elbow and malodorous urine x1.5 weeks, saw her pcp and was started on clindamycin. She reports vomiting when taking the clindamycin. She progressed to having a fever of 103.0 at
home which prompted her to present here. No cough, shortness of breath or abdominal pain.
Since arrival here she has been febrile to 103.7 - no further fevers, bp intermittently with mild hypotension, HR in the low 100s, wbc initially 11.7 today 10.7, hgb 10.2, plt 144, L shift present on arrival, cr 0.8, k 3.2 today, lactic acid
initially 2.5 now 1.7, t bili 1.0, ast 21, alt 17, alk phos 63, ua 50-60 wbc/hpf, covid ag neg, 06/20 L elbow xray: Diffuse soft tissue swelling and subcutaneous edema - posterior soft tissue gas, 06/17 L elbow xray: less swelling, I so see some gas
bubbles on my read, 06/20 cxr: atelectasis, mrsa screen pending, urine culture pending, influenza negative, one of two sets of blood cultures with s pyogenes
Past History
Additional Past Medical History:
Multiple sclerosis
Pneumothorax
Osteoarthritis
Migraine headaches
Neuropathy
Past Surgical History: Appendectomy
Allergy History:
Penicillins Allergy (Verified 06/20/24 13:10)
Hives
Medications Reviewed: Yes
Social History
Tobacco: Non-Smoker
Alcohol: None
Drug: None
Family History
Family History: Not Pertinent
Review of Systems
Review of Systems
General: Fever; Negative Chills
All systems: All other systems were reviewed and were negative (except as listed in HPI)
Vital Signs
Temp Pulse Resp BP Pulse Ox
98.0 F 101 18 92/57 98
06/21/24 11:09 06/21/24 11:09 06/21/24 11:09 06/21/24 11:09 06/21/24 11:09
Physical Exam
Physical Exam
Constitutional: No Acute Distress
Cardiovascular: Regular Rate and S1/S2; Negative Murmur or Rub
Pulmonary: Clear and Symmetric; Negative Wheezes, Rales or Rhonchi
Gastrointestinal: Soft, Non Tender, Non Distended and Normal Bowel Sounds
Skin: Warm and Dry; Negative Rash or Jaundice
Lab / Diagnostic Study Results
06/21/24 06:51
06/21/24 06:51
Abs Immat Gran (auto) 0.1 10^3/uL (0-0.05) H 06/20/24 13:29
Absolute Neuts (auto) 10.5 10^3/uL (1.4-6.5) H 06/20/24 13:29
Absolute Lymphs (auto) 0.2 10^3/uL (1.2-3.4) L 06/20/24 13:29
Absolute Monos (auto) 0.8 10^3/uL (0.1-0.6) H 06/20/24 13:29
Absolute Basos (auto) 0.0 10^3/uL (0-0.2) 06/20/24 13:29
Immature Gran % 0.8 % (0-0.5) H 06/20/24 13:29
Neutrophils % 89.7 % (42.2-75.2) H 06/20/24 13:29
Lymphocytes % 2.0 % (20.5-51.1) L 06/20/24 13:29
Monocytes % 7.2 % (1.7-9.3) 06/20/24 13:29
Eosinophils % 0.0 % (0-6) 06/20/24 13:29
Basophils % 0.3 % (0-2) 06/20/24 13:29
Lactic Acid Cancelled 06/21/24 01:56
Ur Squamous Epith Cells >30 /LPF (Few) 06/20/24 21:19
Microbiology Results
Micro:
06/20/24 13:29 Wound Culture - Final
Elbow - Left Streptococcus pyogenes
Gram Stain - Final
06/20/24 21:19 Urine Culture - Pending
Urine
06/20/24 20:03 MRSA Screen - Pending
Nose
06/20/24 16:26 Influenza Types A & B (ELÍAS) - Final
Nasal Swab Negative for Influenza A & B, NAAT
Negative results must be combined with clinical observations
and patient history.
Nucleic Acid Amplification test (NAAT)performed on the
[employer] platform.
06/20/24 14:47 Blood Culture - Pending
Blood/Venous
06/20/24 13:29 Blood Culture - Pending
Blood/Venous
Assessment / Plan
Septic Bursitis due to Group A strep
Group A Strep Bacteremia
Allergy to penicillin: hives
MS
- repeat blood cultures x2 at 48 hours (tomorrow am)
- mrsa screen pending
- agree with vancomycin for present
- add clindamycin 900 mg IV x48 hours for toxin inhibition
- agree with I&D - please sent aerobic and anaerobic cultures - will follow up OR note
Possible UTI
- agree with ceftriaxone
- follow urine culture
Care Review
Plan reviewed with: Physician (Dr Thompson - he tells me no further imaging needed)
[2024-06-21] MEDS: CLEOCIN 50 IV ×2 (14:36→22:09)
--- NOTE | 2024-06-21 14:40 | CM ---
CM met with Joshua and her at bedside. 2 story home with first floor set up.
Joshua has MS which has been in remission for several years; admitted after a fall at home with fx left elbow. 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
Joshua has been (I) amb and adls [employer]. Surgery planned for septic olecranon bursitis tomorrow. Currently on IV abx, unclear what will be needed at discharge.
Plan: CM to follow for all discharge planning needs post-op. Options discussed with pt and include home care or outpatient therapy when cleared by surgery.
--- NOTE | 2024-06-21 17:22 | W.IMMPOSTOP ---
Surgical Immed Post Op Note
-
Primary Surgeon: Donna
Pre-op Diagnosis: Left olecranon septic bursitis, cellulitis
Post-op Diagnosis: Same
Procedure Performed: Left olecranon bursa and forearm incision and debridement
Anesthesia Type: General
Specimen / Cultures: Olecranon bursa fluid and forearm fascia
Estimated Blood Loss: 2cc
Complications: None
Operative Findings:
There was fluid that appeared as 'dishwater fluid' in the olecranon bursa. Therefore, incisions were made in the mid forearm and dorsal side of the wrist.
No evidence of tissue necrosis was found. Mid forearm fascia was sent for pathology/ cultures
Wounds closed over Mike drain.
Plan:
- Continue with IV abx per ID
- Will keep the dressing and drains until Wednesday AM, unless there are worsening symptoms
Dictated [id number]
[2024-06-21] MEDS: MERREM 500 MG IV ×2 (18:36→23:12)
--- NOTE | 2024-06-21 19:39 | PTCARENOTE ---
181 Pt returned from surgery AAOX3. Pt with oxygen at 2 Liters via Nasal canula. IVF infusing per order. No distress noted. Left elbow with Gregg wrap CDI.
[2024-06-21] MEDS: NEURONTIN 200 MG PO (22:08)
[2024-06-22 03:28] VITALS: BP 127/70
[2024-06-22] MEDS: STERILE WATER FOR INJECTION 10 ML IV ×3 (05:03→18:07)
[2024-06-22] MEDS: MERREM 500 MG IV ×3 (05:04→18:06)
[2024-06-22] MEDS: CLEOCIN 50 IV ×3 (05:05→21:01)
[2024-06-22] MEDS: VANCOCIN 200 IV (06:00)
[2024-06-22 06:20] LABS: Hematocrit 31.2 % (37.0-47.0); Mean Corp Hgb Conc. 32.1 g/dL (33.0-37.0); Mean Corpuscular Volume 90.4 fL (81.0-99.0); Mean Platelet Volume 11.5 fL (7.4-10.4); Platelet Count 150 10^3/uL (130-400); Red Blood Cell Count 3.45 10^6/uL (4.20-5.40); White Blood Cell Count 10.8 10^3/uL (4.8-10.8)
[2024-06-22 06:53] LABS: Blood Urea Nitrogen 20 mg/dl (7-17); Calcium 7.7 mg/dl (8.4-10.2); Carbon Dioxide 19 mmol/L (22-30); Chloride 110 mmol/L (98-107); Estimated Creatinine Clearance 70 ml/min; Glucose 158 mg/dl (70-99); Potassium 4.1 mmol/L (3.5-5.1); Sodium 139 mmol/L (135-145); eGFR > 60.00
--- NOTE | 2024-06-22 08:00 | W.PN.ORTHO ---
Today's Communication / Plan
-
Ice with elevation left arm to above level of shoulder to control edema/pain
Antibiotics per ID
Mike drain to be removed tomorrow
Orthopedics to continue to follow
Assessment
.
Distal Motor Intact: Yes
Dressing:
Posterior molded splint/Gregg wrap in place ---clean, dry and intact.
Plan
.
Surgery / Date: L elbow I&D with Young Harris drain 06/21 [place]
DVT Prophylaxis: Aspirin
Activity:
Out of bed.
PT/OT
Discharge Plan: Home
Subjective
.
.:
Patient resting comfortably.
Vital Signs and Labs
.
Vital Signs and Labs:
Lab Results
06/22/24 05:41
06/22/24 05:41
Temp Pulse Resp BP Pulse Ox
97.9 F 77 20 127/70 97
06/22/24 03:28 06/22/24 03:28 06/22/24 03:28 06/22/24 03:28 06/22/24 03:28
--- NOTE | 2024-06-22 08:51 | CM ---
Reviewed the chart notes. Patient s/p L elbow I&D with Barrington drain 06/21. ID following. IV abx . CM continues to be available to patient/family and is monitoring medical plan for needs at discharge.
Plan: Discharge plans will depend on the patient's progress.
[2024-06-22] MEDS: PROVERA 10 MG PO (08:57)
[2024-06-22] MEDS: DETROL LA 4 MG PO (08:57)
[2024-06-22] MEDS: NSS IV (08:57)
[2024-06-22] MEDS: ESTRACE 1 MG PO (08:57)
--- NOTE | 2024-06-22 09:52 | PHA.VAN.FU ---
Vancomycin Assessment / Plan
- Assessment
Renal Function: SCR Decreasing (1.0->0.8->0.6)
WBC's are: WNL
In the past 24 hrs, patient has been: Febrile (tmax 100.6)
Concomitant Antimicrobials: meropenem
- Dosing Plan
Continue: vanc 1000mg q24
New Regimen Predicts: AUC (450 with improved renal fx)
- Monitoring Plan
No level(s) ordered at this time: consider in upcoming days, not yet at steady state
- Follow Up
Pharmacy will continue to follow.
Vancomycin Follow UP
- -
Patient Age: 68
Patient Sex: Female
Vancomycin Day #: 3
Indication: Skin And Soft Tissue (cellulitis of olecranon bursa)
Requesting Provider: BERNARDO Colón/ Dr Hogan
Pertinent Antimicrobial Allergies:
Penicillins Allergy - hives
Height / Weight:
Height 5 ft 2 in
Actual Weight 59.959 kg
Pertinent Past Medical History: MS, I&D in OR 06/21
- Vital Signs / Lab Results
Temp Pulse Resp BP Pulse Ox
97.9 F 77 20 127/70 97
06/22/24 03:28 06/22/24 03:28 06/22/24 03:28 06/22/24 03:28 06/22/24 03:28
Lab Results - Hematology
06/20/24 06/21/24 06/22/24
13:29 06:51 05:41
WBC 11.7 H 10.7 10.8
Lab Results - Chemistry
06/20/24 06/21/24 06/22/24
13:29 06:51 05:41
BUN 38 H 33 H 20 H
Creatinine 1.0 0.8 0.6
Estimated Creat Clear 42 52 70
Albumin 3.8
1206/20/24 06/20/24
13:29 20:03 21:56
Lactic Acid 2.5 H 1.7 Cancelled
06/21/24
01:56
Lactic Acid Cancelled
Microbiology Results
06/20/24 20:03 MRSA Screen - Final
Nose No Methicillin Resistant Staphylococcus aureus isolated.
06/21/24 16:30 Gram Stain - Preliminary
Tissue
06/21/24 16:30 Gram Stain - Preliminary
Bursa
06/20/24 14:47 Blood Culture - Preliminary
Blood/Venous No Growth in 24 hours- Final report to follow
06/20/24 13:29 Blood Culture - Preliminary
Blood/Venous No Growth in 24 hours- Final report to follow
06/20/24 13:29 Wound Culture - Final
Elbow - Left Streptococcus pyogenes
Gram Stain - Final
06/20/24 16:26 Influenza Types A & B (ELÍAS) - Final
Nasal Swab Negative for Influenza A & B, NAAT
Negative results must be combined with clinical observations
and patient history.
Nucleic Acid Amplification test (NAAT)performed on the
[employer] platform.
--- NOTE | 2024-06-22 10:05 | W.PN.HOSP.TC ---
Today's Communication/Plan
-
c/w IV Abx
Add PRN morphine
SQ heparin
Assessment / Plan
Assessment / Plan
Physical Exam
General: Well Developed, Well Nourished and No Apparent Distress
HEENT: NormoCephalic, Moist mucous membranes and Atraumatic
Respiratory: Clear
Cardiac: S1/S2 and Regular Rhythm; No Murmur or Rub
GI: Soft, Non Tender.
Rectal: no bleeding
Musculoskeletal: No Clubbing, No Cyanosis and Other, dressing left UE, good radial pulse, normal looking left fingers and normal temperature.
Skin: Rash and Other (left arm red, swollen, warm to touch)
Neuro: AO x 3 and Nonfocal/grossly intact
Psych: Calm
68-year-old female history of migraines, MS presenting with generalized fatigue. Patient states that she lost her balance and fell on June 16 injuring her left elbow but later had increasing pain, swelling, and discharge from the left
elbow.
# Left septic olecranon bursitis and cellulitis s/p Left olecranon forearm & bursa incision and debridement, excisional by Dr Thompson on 06/21/24.
-Sepsis POA as evidenced by tachycardia, fever 103.7, WBCs 11.7, lactic 2.5,, resolving
She is feeling better, on IV Abx
Culture Group B streptococcus.
No fevers.
WBC is coming down
Blood culture is pending.
Appreciate Ortho & ID help
# hypokalemia, replaced.
# Suspect UTI with
Already on antibiotics.
f/w urine culture
# Multiple sclerosis
Primary neurologist at [facility]
# DVT prophylaxis
-SCDs
Start SQ Heparin
# CODE STATUS
-Full code
Total time spent to see the patient on the floor, examine the patient, review data and lab results, discuss treatment plan with patient, nursing staff around 57 minutes.
Anticipated Discharge: > 48 hours
Subjective/Interval History
-
Date of Service: June 22, 2024
less pain in left elbow region
No fever
No sob
No chest pain
Objective Data
-
Labs:
Laboratory Results
06/22/24
05:41
WBC 10.8
Hgb 10.0 L
Hct 31.2 L
Plt Count 150
Sodium 139
Potassium 4.1 D
Chloride 110 H
Carbon Dioxide 19 L
BUN 20 H
Creatinine 0.6
Glucose 158 H
Calcium 7.7 L
Vital Signs:
Vital Signs
Temp Pulse Resp BP Pulse Ox
97.9 F 77 20 127/70 97
06/22/24 03:28 06/22/24 03:28 06/22/24 03:28 06/22/24 03:28 06/22/24 03:28
I&O
06/21/24 06/22/24 06/23/24
06:59 06:59 06:59
Intake Total 480 / 480 1467.5 / 1467.5 480 / 480
Balance 480 / 480 1467.5 / 1467.5 480 / 480
[2024-06-22 11:31] VITALS: BP 135/68
[2024-06-22 16:11] VITALS: BP 121/73
--- NOTE | 2024-06-22 17:25 | W.PN.ID1 ---
Date of Service
Date of Service: June 22, 2024
Today's Communication
- agree with vancomycin for present
- c/w clindamycin 900 mg IV x48 hours for toxin inhibition
- c/w meropenem for today - follow OR culture another day
Assessment / Plan
Possible Necrotizing Fasciitis - suspect monomicrobial
Septic Bursitis due to Group A strep
Group A Strep Bacteremia
Allergy to penicillin: hives
MS
- repeat blood cultures x2 no growth to date
- mrsa screen negative
- follow up OR cultures
- appreciate surgical input
- agree with vancomycin for present
- c/w clindamycin 900 mg IV x48 hours for toxin inhibition
- c/w meropenem for today - follow OR culture another day
Possible UTI
- 100K GPC - likely descending infection (secondary to bacteremia)
- antibiotics as above
- follow urine culture
Chief Complaint
-: Other (necrotizing fasciitis)
Subjective / Review of Systems
afebrile
bp stable
'I feel much better'
much less pain in the elbow
Vital Signs / Physical Exam
Vital Signs
Vital Signs
Temp Pulse Resp BP Pulse Ox
97.7 F 99 16 121/73 100
06/22/24 16:11 06/22/24 16:11 06/22/24 16:11 06/22/24 16:11 06/22/24 16:11
Physical Exam
Constitutional: No Acute Distress
Cardiovascular: Regular Rate and S1/S2; Negative Murmur or Rub
Pulmonary: Clear and Symmetric; Negative Wheezes or Rales
Gastrointestinal: Soft, Non Tender, Non Distended and Normal Bowel Sounds
Extremities: Other (dressing clean, dry, intact - deferred take down to surgery service)
Skin: Warm and Dry; Negative Rash or Jaundice
Neurological: Awake
Objective Data
Lab Data
Lab Results
06/22/24 05:41
06/22/24 05:41
Estimated Creat Clear 70 ml/min 06/22/24 05:41
Lactic Acid Cancelled 06/21/24 01:56
Total Bilirubin 1.0 mg/dl (0.2-1.3) 06/20/24 13:29
AST 21 U/L (14-36) 06/20/24 13:29
ALT 17 U/L (0-35) 06/20/24 13:29
Alkaline Phosphatase 63 U/L (38-126) 06/20/24 13:29
Most recent labs reviewed.
Micro Results:
06/20/24 14:47 Blood Culture - Preliminary
Blood/Venous No Growth in 48 hours- Final report to follow
06/20/24 13:29 Blood Culture - Preliminary
Blood/Venous No Growth in 48 hours- Final report to follow
06/20/24 21:19 Urine Culture - Preliminary
Urine
06/21/24 16:30 Anaerobic Culture - Preliminary
Bursa Culture pending. Anaerobic cultures are examined after 3
days incubation. Additional information to follow.
06/21/24 16:30 Wound Culture - Preliminary
Bursa Streptococcus pyogenes
Gram Stain - Preliminary
06/21/24 16:30 Tissue Culture - Preliminary
Tissue Streptococcus pyogenes
Gram Stain - Preliminary
06/20/24 20:03 MRSA Screen - Final
Nose No Methicillin Resistant Staphylococcus aureus isolated.
06/22/24 07:28 Blood Culture - Pending
Blood/Venous
06/22/24 05:41 Blood Culture - Pending
Blood/Venous
06/20/24 13:29 Wound Culture - Final
Elbow - Left Streptococcus pyogenes
Gram Stain - Final
06/20/24 16:26 Influenza Types A & B (ELÍAS) - Final
Nasal Swab Negative for Influenza A & B, NAAT
Negative results must be combined with clinical observations
and patient history.
Nucleic Acid Amplification test (NAAT)performed on the
[employer] platform.
[2024-06-22 19:24] VITALS: BP 144/77
[2024-06-22] MEDS: NEURONTIN 200 MG PO (21:01)
[2024-06-22] MEDS: HEPARIN 5000 UNITS SC (21:01)
[2024-06-22 23:07] VITALS: BP 111/62
[2024-06-23] MEDS: STERILE WATER FOR INJECTION 10 ML IV ×3 (00:07→11:52)
[2024-06-23] MEDS: MERREM 500 MG IV ×3 (00:07→11:52)
[2024-06-23 03:46] VITALS: BP 136/81
[2024-06-23] MEDS: CLEOCIN 50 IV (05:10)
[2024-06-23] MEDS: VANCOCIN 200 IV (05:51)
[2024-06-23 06:42] LABS: Hemoglobin 10.5 g/dL (12.0-16.0); Mean Corp Hgb Conc. 32.8 g/dL (33.0-37.0); Mean Corpuscular Hgb 29.6 pg (27.0-31.0); Mean Corpuscular Volume 90.1 fL (81.0-99.0); Mean Platelet Volume 11.2 fL (7.4-10.4); Platelet Count 191 10^3/uL (130-400); Red Blood Cell Count 3.55 10^6/uL (4.20-5.40); Red Cell Dist. Width 14.9 % (11.5-14.5); White Blood Cell Count 10.9 10^3/uL (4.8-10.8)
[2024-06-23 06:57] LABS: Blood Urea Nitrogen 27 mg/dl (7-17); Calcium 8.3 mg/dl (8.4-10.2); Carbon Dioxide 22 mmol/L (22-30); Chloride 109 mmol/L (98-107); Estimated Creatinine Clearance 70 ml/min; Glucose 104 mg/dl (70-99); Potassium 3.6 mmol/L (3.5-5.1); Sodium 138 mmol/L (135-145); eGFR > 60.00
--- NOTE | 2024-06-23 07:40 | W.PN.ORTHO ---
Today's Communication / Plan
-
68-year-old female status post left upper extremity olecranon bursa and antebrachium debridement irrigation with Mike drains with Dr. Thompson on 21 June 2024
-DVT prophylaxis: Aspirin daily unless recommended otherwise per primary
-Diet per primary
-Pain controlled on current regimen
-Drains were removed without complication. Nonadherent dressings were maintained and new ABDs followed by Gregg wrap and return to splint. Will continue with elevation to reduce edema and postoperative pain.
Recommend OT consult which is in place. May perform range of motion for approximately 45 degrees of flexion to terminal extension. Nonweightbearing. Range of motion of the wrist and hand as tolerated. Outpatient follow-up in 1 week for wound
check
Assessment
.
Distal Motor Intact: Yes
Dressing:
Clean, dry and intact.
Plan
.
Surgery / Date: L elbow I&D with Mike drain 06/21 Donna
Activity:
Out of bed.
PT/OT
Subjective
.
.:
Patient resting comfortably.
Vital Signs and Labs
.
Vital Signs and Labs:
Lab Results
06/23/24 05:50
06/23/24 05:50
Temp Pulse Resp BP Pulse Ox
97.8 F 86 16 136/81 99
06/23/24 03:46 06/23/24 03:46 06/23/24 03:46 06/23/24 03:46 06/23/24 03:46
Physical Exam
-
Splint and dressings were removed showing well-approximated surgical incisions with 2 visible drains throughout the elbow and antebrachium. No surrounding significant drainage or erythema. Neurovascularly intact distally
[2024-06-23 07:55] VITALS: BP 143/79
[2024-06-23] MEDS: ESTRACE 1 MG PO (07:56)
[2024-06-23] MEDS: PROVERA 10 MG PO (07:57)
[2024-06-23] MEDS: DETROL LA 4 MG PO (07:57)
[2024-06-23] MEDS: HEPARIN 5000 UNITS SC ×2 (07:57→21:00)
--- NOTE | 2024-06-23 08:11 | W.PN.HOSP.TC ---
Today's Communication/Plan
-
continue IV abx per ID
continue post-op care per Orthopedics
Assessment / Plan
Assessment / Plan
Physical Exam
General: Well Developed, Well Nourished and No Apparent Distress
HEENT: NormoCephalic, Moist mucous membranes and Atraumatic
Respiratory: Clear
Cardiac: S1/S2 and Regular Rhythm; No Murmur or Rub
GI: Soft, Non Tender.
Rectal: no bleeding
Musculoskeletal: No Clubbing, No Cyanosis and Other, dressing left UE, good radial pulse, normal looking left fingers and normal temperature.
Skin: Rash and Other (left arm in cast)
Neuro: AO x 3 and Nonfocal/grossly intact
Psych: Calm
68-year-old female history of migraines, MS presenting with generalized fatigue. Patient states that she lost her balance and fell on June 16 injuring her left elbow but later had increasing pain, swelling, and discharge from the left
elbow.
Assessment:
Left septic olecranon bursitis and cellulitis s/p Left olecranon forearm & bursa incision and debridement, excisional by Dr Thompson on 06/21/24.
Sepsis POA as evidenced by tachycardia, fever 103.7, WBCs 11.7, lactic 2.5,, resolving
Culture Group B streptococcus. Continue Vanco, Meropenem and IV Clindamycin per ID
No fevers.
WBC is coming down
Blood culture NGTD
Appreciate Ortho & ID help
# hypokalemia, replaced.
#Hyponatremia
resolved
#Aerococcus UTI
Already on antibiotics.
f/w urine culture
#Multiple sclerosis
Primary neurologist at [facility]
DVT prophylaxis: SC heparin
Code: Full
Total time spent to see the patient on the floor, examine the patient, review data and lab results, discuss treatment plan with patient, nursing staff around 45 minutes.
Anticipated Discharge: 24 - 48 hours
Subjective/Interval History
-
Date of Service: June 23, 2024
resting well, no complaints presently
Objective Data
-
Labs:
Laboratory Results
06/23/24
05:50
WBC 10.9 H
Hgb 10.5 L
Hct 32.0 L
Plt Count 191 D
Sodium 138
Potassium 3.6
Chloride 109 H
Carbon Dioxide 22
BUN 27 H
Creatinine 0.6
Glucose 104 H
Calcium 8.3 L
Vital Signs:
Vital Signs
Temp Pulse Resp BP Pulse Ox
97.4 F 84 16 143/79 99
06/23/24 07:55 06/23/24 07:55 06/23/24 07:55 06/23/24 07:55 06/23/24 07:55
I&O
06/22/24 06/23/24 06/24/24
06:59 06:59 06:59
Intake Total 1467.5 / 1467.5 1979
Balance 1467.5 / 1467.5 1979
Data Reviewed
-
Total Time Spent with Patient (in minutes): 45
Labs: Labs Reviewed by me
--- NOTE | 2024-06-23 10:32 | PHA.VAN.FU ---
Vancomycin Assessment / Plan
- Assessment
Renal Function: Stable
WBC's are: Trending Up (slighlty)
In the past 24 hrs, patient has been: Afebrile
Concomitant Antimicrobials: meropenem, last day of clindamycin
- Dosing Plan
Continue: vancomycin 1000mg q24h
- Monitoring Plan
Peak Level: 06/24 830
Trough Level: 06/25 530
- Follow Up
Pharmacy will continue to follow.
Vancomycin Follow UP
- -
Patient Age: 68
Patient Sex: Female
Vancomycin Day #: 4
Indication: Skin And Soft Tissue (cellulitis of olecranon bursa)
Requesting Provider: BERNARDO Colón/ Dr Hogan
Pertinent Antimicrobial Allergies:
Penicillins Allergy - hives
Height / Weight:
Height 5 ft 2 in
Actual Weight 59.959 kg
Pertinent Past Medical History: MS, I&D in OR 06/21
- Vital Signs / Lab Results
Temp Pulse Resp BP Pulse Ox
97.4 F 84 16 143/79 99
06/23/24 07:55 06/23/24 07:55 06/23/24 07:55 06/23/24 07:55 06/23/24 07:55
Lab Results - Hematology
06/20/24 06/21/24 06/22/24
13:29 06:51 05:41
WBC 11.7 H 10.7 10.8
06/23/24
05:50
WBC 10.9 H
Lab Results - Chemistry
06/20/24 06/21/24 06/22/24
13:29 06:51 05:41
BUN 38 H 33 H 20 H
Creatinine 1.0 0.8 0.6
Estimated Creat Clear 42 52 70
Albumin 3.8
12/13/24
05:50
BUN 27 H
Creatinine 0.6
Estimated Creat Clear 70
Albumin
06/20/24 06/20/24 06/20/24
13:29 20:03 21:56
Lactic Acid 2.5 H 1.7 Cancelled
06/21/24
01:56
Lactic Acid Cancelled
Lab Results - Urine
06/20/24
21:19
Urine Nitrite (Reflex) Negative
Leukocyte Esterase Rfl 2+ A
Ur Squamous Epith Cells >30
Microbiology Results
06/21/24 16:30 Wound Culture - Preliminary
Bursa Streptococcus pyogenes
Gram Stain - Preliminary
06/21/24 16:30 Tissue Culture - Final
Tissue Streptococcus pyogenes
Gram Stain - Final
06/20/24 21:19 Urine Culture - Final
Urine Aerococcus Species
06/22/24 07:28 Blood Culture - Preliminary
Blood/Venous No Growth in 24 hours- Final report to follow
06/22/24 05:41 Blood Culture - Preliminary
Blood/Venous No Growth in 24 hours- Final report to follow
06/20/24 14:47 Blood Culture - Preliminary
Blood/Venous No Growth in 48 hours- Final report to follow
06/20/24 13:29 Blood Culture - Preliminary
Blood/Venous No Growth in 48 hours- Final report to follow
06/21/24 16:30 Anaerobic Culture - Preliminary
Bursa Culture pending. Anaerobic cultures are examined after 3
days incubation. Additional information to follow.
06/20/24 20:03 MRSA Screen - Final
Nose No Methicillin Resistant Staphylococcus aureus isolated.
06/20/24 13:29 Wound Culture - Final
Elbow - Left Streptococcus pyogenes
Gram Stain - Final
[2024-06-23 11:14] VITALS: BP 143/80
[2024-06-23 15:46] VITALS: BP 144/80; PULSE 96; O2SAT 99
--- NOTE | 2024-06-23 15:51 | W.PN.ID1 ---
Date of Service
Date of Service: June 23, 2024
Today's Communication
- start cefazolin - stop vancomycin and meropenem
- lab is checking GAS for sensitivity to clindamycin
Assessment / Plan
Possible Necrotizing Fasciitis - suspect monomicrobial
Septic Bursitis due to Group A strep
Group A Strep Bacteremia
Allergy to penicillin: hives
MS
- repeat blood cultures x2 no growth to date
- mrsa screen negative
- 06/21 OR cultures: GAS
- appreciate surgical input
- gives a clear history consistent with hives with penicillin as an adult
- start cefazolin - stop vancomycin and meropenem
- lab is checking GAS for sensitivity to clindamycin
Possible UTI - resolved
- 100K aerococcus - has completed 3 days of vancomycin
Chief Complaint
-: Other (necrotizing fasciitis)
Subjective / Review of Systems
afebrile
bp stable
reviewed orthopedics note - pleased to read no erythema or necrotic tissue
Vital Signs / Physical Exam
Vital Signs
Vital Signs
Temp Pulse Resp BP Pulse Ox
97.5 F 92 16 143/80 100
06/23/24 11:14 06/23/24 11:14 06/23/24 11:14 06/23/24 11:14 06/23/24 11:14
Physical Exam
Constitutional: No Acute Distress
Cardiovascular: Regular Rate and S1/S2; Negative Murmur or Rub
Pulmonary: Clear and Symmetric; Negative Wheezes or Rales
Gastrointestinal: Soft, Non Tender, Non Distended and Normal Bowel Sounds
Skin: Warm and Dry; Negative Rash or Jaundice
Wound: Other (dressing clean, dry, intact)
Objective Data
Lab Data
Lab Results
06/23/24 05:50
06/23/24 05:50
Estimated Creat Clear 70 ml/min 06/23/24 05:50
Lactic Acid Cancelled 06/21/24 01:56
Total Bilirubin 1.0 mg/dl (0.2-1.3) 06/20/24 13:29
AST 21 U/L (14-36) 06/20/24 13:29
ALT 17 U/L (0-35) 06/20/24 13:29
Alkaline Phosphatase 63 U/L (38-126) 06/20/24 13:29
Most recent labs reviewed.
Micro Results:
06/21/24 16:30 Tissue Culture - Preliminary
Tissue Streptococcus pyogenes
Gram Stain - Final
06/20/24 14:47 Blood Culture - Preliminary
Blood/Venous No Growth in 72 hours- Final report to follow
06/20/24 13:29 Blood Culture - Preliminary
Blood/Venous No Growth in 72 hours- Final report to follow
06/21/24 16:30 Wound Culture - Preliminary
Bursa Streptococcus pyogenes
Gram Stain - Preliminary
06/20/24 21:19 Urine Culture - Final
Urine Aerococcus Species
06/22/24 07:28 Blood Culture - Preliminary
Blood/Venous No Growth in 24 hours- Final report to follow
06/22/24 05:41 Blood Culture - Preliminary
Blood/Venous No Growth in 24 hours- Final report to follow
06/21/24 16:30 Anaerobic Culture - Preliminary
Bursa Culture pending. Anaerobic cultures are examined after 3
days incubation. Additional information to follow.
06/20/24 20:03 MRSA Screen - Final
Nose No Methicillin Resistant Staphylococcus aureus isolated.
06/20/24 13:29 Wound Culture - Final
Elbow - Left Streptococcus pyogenes
Gram Stain - Final
06/20/24 16:26 Influenza Types A & B (ELÍAS) - Final
Nasal Swab Negative for Influenza A & B, NAAT
Negative results must be combined with clinical observations
and patient history.
Nucleic Acid Amplification test (NAAT)performed on the
[employer] platform.
[2024-06-23] MEDS: ANCEF 10 IV ×2 (17:02→23:47)
[2024-06-23] MEDS: MORPHINE SULFATE 2 MG IV ×2 (17:10→23:46)
[2024-06-23] MEDS: IMODIUM 4 MG PO (17:56)
--- NOTE | 2024-06-23 18:03 | PTCARENOTE ---
pt c/o sore throat and loose stools. No fever or cough noted. orders obtained.
[2024-06-23 18:53] LABS: COVID-19 Antigen Negative (Negative)
[2024-06-23 19:25] VITALS: BP 141/77
[2024-06-23] MEDS: NEURONTIN 200 MG PO (21:00)
[2024-06-23 23:25] VITALS: BP 159/90
[2024-06-24] VITALS (7 sets, daily range): BP systolic 141–169; BP diastolic 76–93; PULSE 94; O2SAT 98
[2024-06-24 06:30] LABS: Hematocrit 34.5 % (37.0-47.0); Hemoglobin 11.5 g/dL (12.0-16.0); Mean Corp Hgb Conc. 33.3 g/dL (33.0-37.0); Mean Corpuscular Hgb 29.5 pg (27.0-31.0); Mean Corpuscular Volume 88.5 fL (81.0-99.0); Mean Platelet Volume 10.5 fL (7.4-10.4); Platelet Count 210 10^3/uL (130-400); Red Cell Dist. Width 14.8 % (11.5-14.5); White Blood Cell Count 10.8 10^3/uL (4.8-10.8)
[2024-06-24 06:32] LABS: Blood Urea Nitrogen 20 mg/dl (7-17); Calcium 8.3 mg/dl (8.4-10.2); Carbon Dioxide 26 mmol/L (22-30); Chloride 103 mmol/L (98-107); Estimated Creatinine Clearance 69 ml/min; Glucose 94 mg/dl (70-99); Sodium 137 mmol/L (135-145); eGFR > 60.00
[2024-06-24] MEDS: DETROL LA 4 MG PO (07:42)
[2024-06-24] MEDS: PROVERA 10 MG PO (07:43)
[2024-06-24] MEDS: MOTRIN 400 MG PO (07:43)
[2024-06-24] MEDS: HEPARIN 5000 UNITS SC ×2 (07:43→21:05)
[2024-06-24] MEDS: ESTRACE 1 MG PO (07:43)
[2024-06-24] MEDS: ANCEF 10 IV ×2 (07:44→16:55)
--- NOTE | 2024-06-24 08:45 | W.PN.ORTHO ---
Today's Communication / Plan
-
Patient's left elbow/forearm incisions look good this morning
Patient may weight-bear as tolerated.
Ice with elevation to control swelling and pain
Cefazolin per ID
Suggest patient return to office Wednesday or of next week for wound check
Assessment
.
Distal Motor Intact: Yes
Dressing:
Splint was taken down and incisions were inspected. Edema improved dramatically in the forearm. 3 incisions noted with no active drainage present. No fluid accumulation within the elbow bursal region. No significant pain to palpation. Elbow
range of motion and range of motion of the fingers are nonpainful. Distal neurovascular was intact.
Incisions were cleaned with alcohol then dry sterile dressing in place and splint placed as well.
Plan
.
Surgery / Date: L elbow I&D with [place] drain 06/21 Donna
Activity:
Out of bed.
PT/OT
Subjective
.
.:
Patient resting comfortably. available at the bedside today.
Vital Signs and Labs
.
Vital Signs and Labs:
Lab Results
06/24/24 05:47
06/24/24 05:47
Temp Pulse Resp BP Pulse Ox
97.0 F 98 14 141/91 97
06/24/24 07:00 06/24/24 07:00 06/24/24 07:00 06/24/24 07:00 06/24/24 07:00
cultures left elbow positive for Streptococcus pyogenes
--- NOTE | 2024-06-24 13:51 | W.PN.HOSP.TC ---
Today's Communication/Plan
-
c/w IV Ancef
Pain medicine as needed
d/w ortho this morning
Assessment / Plan
Assessment / Plan
Physical Exam
General: Well Developed, Well Nourished and No Apparent Distress
HEENT: NormoCephalic, Moist mucous membranes and Atraumatic
Respiratory: Clear
Cardiac: S1/S2 and Regular Rhythm; No Murmur or Rub
GI: Soft, Non Tender.
Rectal: no bleeding
Musculoskeletal: No Clubbing, No Cyanosis and Other, dressing left UE, good radial pulse, normal looking left fingers and normal temperature.
Skin: Rash and Other (left arm in cast)
Neuro: AO x 3 and Nonfocal/grossly intact
Psych: Calm
68-year-old female history of migraines, MS presenting with generalized fatigue. Patient states that she lost her balance and fell on June 16 injuring her left elbow but later had increasing pain, swelling, and discharge from the left
elbow.
Assessment:
Left septic olecranon bursitis and cellulitis s/p Left olecranon forearm & bursa incision and debridement, excisional by Dr Thompson on 06/21/24.
Sepsis POA as evidenced by tachycardia, fever 103.7, WBCs 11.7, lactic 2.5,, resolved
Culture Group B streptococcus. s/p Vanco, Meropenem and IV Clindamycin per ID. On IV Ancef now
No fevers.
WBC is coming down
Blood culture NGTD
Appreciate Ortho & ID help. Per ortho: no change dressing of wound until seen in office. Ice with elevation to control swelling and pain, bear weight as tolerated.
# hypokalemia, replaced.
#Hyponatremia
resolved
#Aerococcus UTI
No hematuria or fever. No flank pain.
s/p completed 3 days of vancomycin
#Multiple sclerosis
Primary neurologist at [facility]
DVT prophylaxis: SC heparin
Code: Full
Total time spent to see the patient on the floor, examine the patient, review data and lab results, discuss treatment plan with patient, nursing staff around 57 minutes.
Anticipated Discharge: 24 - 48 hours
Subjective/Interval History
-
Date of Service: June 24, 2024
No chest pain
No sob
Objective Data
-
Labs:
Laboratory Results
06/24/24
05:47
WBC 10.8
Hgb 11.5 L
Hct 34.5 L
Plt Count 210
Sodium 137
Potassium 4.0
Chloride 103
Carbon Dioxide 26
BUN 20 H
Creatinine 0.6
Glucose 94
Calcium 8.3 L
Vital Signs:
Vital Signs
Temp Pulse Resp BP Pulse Ox
99.0 F 103 14 146/91 97
06/24/24 11:07 06/24/24 11:07 06/24/24 11:07 06/24/24 11:07 06/24/24 11:07
I&O
06/23/24 06/24/24 06/25/24
06:59 06:59 06:59
Intake Total 1979 1380 / 1380
Balance 1979 1380 / 1380
--- NOTE | 2024-06-24 14:54 | W.PN.ID1 ---
Date of Service
Date of Service: June 24, 2024
Today's Communication
- Continue cefazolin (d5 abx)
-At time of discharge, can transition to linezolid 600mg po bid through 07/03.
Assessment / Plan
Possible Necrotizing Fasciitis - suspect monomicrobial
Septic Bursitis of left olecranon due to Group A strep s/p I+D
Group A Strep Bacteremia
Allergy to penicillin: hives
MS
- repeat blood cultures x2 no growth to date
- mrsa screen negative
- 06/21 OR cultures: GAS
- appreciate surgical input
- gives a clear history consistent with hives with penicillin as an adult
- lab is checking GAS for sensitivity to clindamycin
- Continue cefazolin (d5 abx)
-At time of discharge, can transition to linezolid 600mg po bid through 07/03.
Avoid tyramine-rich foods while on linezolid.
Possible UTI - resolved
- 100K aerococcus - has completed 3 days of vancomycin
Chief Complaint
-: Other (necrotizing fasciitis)
Subjective / Review of Systems
No specific complaints. No significant pain.
Vital Signs / Physical Exam
Vital Signs
Vital Signs
Temp Pulse Resp BP Pulse Ox
99.0 F 103 14 146/91 97
06/24/24 11:07 06/24/24 11:07 06/24/24 11:07 06/24/24 11:07 06/24/24 11:07
Physical Exam
Constitutional: No Acute Distress
Cardiovascular: Regular Rate and S1/S2
Pulmonary: Coarse (bases)
Gastrointestinal: Soft, Non Tender and Non Distended
Extremities: Negative Edema
Neurological: AO x 3
Lines: Other (RUE midline no erythema)
Objective Data
Lab Data
Lab Results
06/24/24 05:47
06/24/24 05:47
Estimated Creat Clear 69 ml/min 06/24/24 05:47
Lactic Acid Cancelled 06/21/24 01:56
Total Bilirubin 1.0 mg/dl (0.2-1.3) 06/20/24 13:29
AST 21 U/L (14-36) 06/20/24 13:29
ALT 17 U/L (0-35) 06/20/24 13:29
Alkaline Phosphatase 63 U/L (38-126) 06/20/24 13:29
Most recent labs reviewed.
Micro Results:
06/20/24 14:47 Blood Culture - Preliminary
Blood/Venous No Growth in 4 days- Final report to follow
06/21/24 16:30 Anaerobic Culture - Preliminary
Bursa NO ANAEROBES ISOLATED
06/20/24 13:29 Blood Culture - Preliminary
Blood/Venous No Growth in 4 days- Final report to follow
06/21/24 16:30 Tissue Culture - Preliminary
Tissue Streptococcus pyogenes
Gram Stain - Final
06/22/24 07:28 Blood Culture - Preliminary
Blood/Venous No Growth in 48 hours- Final report to follow
06/22/24 05:41 Blood Culture - Preliminary
Blood/Venous No Growth in 48 hours- Final report to follow
06/21/24 16:30 Wound Culture - Preliminary
Bursa Streptococcus pyogenes
Gram Stain - Preliminary
06/20/24 21:19 Urine Culture - Final
Urine Aerococcus Species
06/20/24 20:03 MRSA Screen - Final
Nose No Methicillin Resistant Staphylococcus aureus isolated.
06/20/24 13:29 Wound Culture - Final
Elbow - Left Streptococcus pyogenes
Gram Stain - Final
06/20/24 16:26 Influenza Types A & B (ELÍAS) - Final
Nasal Swab Negative for Influenza A & B, NAAT
Negative results must be combined with clinical observations
and patient history.
Nucleic Acid Amplification test (NAAT)performed on the
[employer] platform.
Care Review
Plan reviewed with: Physician (Dr. Richard)
[2024-06-24] MEDS: TYLENOL 650 MG PO (17:13)
[2024-06-24] MEDS: NEURONTIN 200 MG PO (21:05)
[2024-06-24] MEDS: MORPHINE SULFATE 2 MG IV (21:14)
[2024-06-25] VITALS (7 sets, daily range): BP systolic 134–188; BP diastolic 61–90
[2024-06-25] MEDS: ANCEF 10 IV ×3 (00:07→17:05)
[2024-06-25] MEDS: APRESOLINE 5 MG IV (03:32)
[2024-06-25] MEDS: MAALOX 30 ML PO ×2 (03:36→19:45)
--- NOTE | 2024-06-25 03:41 | PTCARENOTE ---
Pt with a Bp if 188/88 w/ HR 88. [employer] notified an STAT order for hydralazine administer per RN. RN to recheck BP in 1 hr
--- NOTE | 2024-06-25 08:20 | W.PN.ORTHO ---
Today's Communication / Plan
-
Patient appears to be doing well this morning
Suggest try to steer away from narcotics for pain control
Linezolid 600 mg twice daily through July 03
Hopefully discharge tomorrow if medically stable
Close follow-up with orthopedics Wednesday or Wednesday for wound check and likely discontinue splint in favor of light dressing/range of motion exercises
Assessment
.
Distal Motor Intact: Yes
Dressing:
Clean, dry and intact.
Plan
.
Surgery / Date: L elbow I&D with Mike drain 06/21 Donna
Activity:
Out of bed.
PT/OT
Discharge Plan: Home
Subjective
.
.:
Patient resting comfortably.
Vital Signs and Labs
.
Vital Signs and Labs:
Lab Results
06/24/24 05:47
06/24/24 05:47
Temp Pulse Resp BP Pulse Ox
99 F 95 18 154/81 98
06/25/24 03:31 06/25/24 04:34 06/25/24 03:31 06/25/24 04:34 06/25/24 03:31
[2024-06-25] MEDS: ESTRACE 1 MG PO (08:57)
[2024-06-25] MEDS: HEPARIN 5000 UNITS SC ×2 (08:57→19:45)
[2024-06-25] MEDS: DETROL LA 4 MG PO (08:57)
[2024-06-25] MEDS: PROVERA 10 MG PO (08:57)
--- NOTE | 2024-06-25 09:46 | W.PN.HOSP.TC ---
Today's Communication/Plan
-
Treat for GERD if needed
IV Ancef
Assessment / Plan
Assessment / Plan
Physical Exam
General: Well Developed, Well Nourished and No Apparent Distress
HEENT: NormoCephalic, Moist mucous membranes and Atraumatic
Respiratory: Clear
Cardiac: S1/S2 and Regular Rhythm; No Murmur or Rub
GI: Soft, Non Tender.
Rectal: no bleeding
Musculoskeletal: No Clubbing, No Cyanosis and Other, dressing left UE, good radial pulse, normal looking left fingers and normal temperature.
Skin: Rash and Other (left arm in cast)
Neuro: AO x 3 and Nonfocal/grossly intact
Psych: Calm
68-year-old female history of migraines, MS presenting with generalized fatigue. Patient states that she lost her balance and fell on June 16 injuring her left elbow but later had increasing pain, swelling, and discharge from the left
elbow.
Assessment:
Left septic olecranon bursitis and cellulitis s/p Left olecranon forearm & bursa incision and debridement, excisional by Dr Thompson on 06/21/24.
Sepsis POA as evidenced by tachycardia, fever 103.7, WBCs 11.7, lactic 2.5,, resolved
Culture Group B streptococcus. s/p Vanco, Meropenem and IV Clindamycin per ID. On IV Ancef now
No fevers.
WBC normalized.
Blood culture NGTD
Appreciate Ortho & ID help.
Per ortho: no change dressing of wound until seen in office. Ice with elevation to control swelling and pain, bear weight as tolerated. Close follow-up with orthopedics Wednesday or Wednesday for wound check and likely discontinue splint in favor of
light dressing/range of motion exercises.
# mild GERD, likely due to opioid, she will try to avoid, use Tylenol
PRN Maalox/ tums are ordered.
# hypokalemia, replaced.
#Hyponatremia
resolved
#Aerococcus UTI
No hematuria or fever. No flank pain.
s/p completed 3 days of vancomycin
#Multiple sclerosis
Primary neurologist at [facility]
DVT prophylaxis: SC heparin
Code: Full
Total time spent to see the patient on the floor, examine the patient, review data and lab results, discuss treatment plan with patient, , nursing staff around 59 minutes.
Anticipated Discharge: Within 24 hours
Subjective/Interval History
-
Date of Service: June 25, 2024
Objective Data
-
Vital Signs:
Vital Signs
Temp Pulse Resp BP Pulse Ox
98.7 F 103 20 149/88 95
06/25/24 07:00 06/25/24 07:00 06/25/24 07:00 06/25/24 07:00 06/25/24 07:00
I&O
06/24/24 06/25/24 06/26/24
06:59 06:59 06:59
Intake Total 1380 / 1380 1320 / 1320
Balance 1380 / 1380 1320 / 1320
--- NOTE | 2024-06-25 12:54 | W.PN.ID1 ---
Date of Service
Date of Service: June 25, 2024
Today's Communication
Continue cefazolin.
Assessment / Plan
Possible Necrotizing Fasciitis
Septic Bursitis of left olecranon due to Group A strep s/p I+D
Group A Strep Bacteremia
Allergy to penicillin: hives
MS
- repeat blood cultures x2 no growth to date
- mrsa screen negative
- 06/21 OR cultures: GAS
- appreciate surgical input
- gives a clear history consistent with hives with penicillin as an adult
- lab is checking GAS for sensitivity to clindamycin
- Continue cefazolin (d6 abx)
-At time of discharge, can transition to linezolid 600mg po bid
Avoid tyramine-rich foods while on linezolid.
Possible UTI - resolved
- 100K aerococcus - has completed 3 days of vancomycin
Chief Complaint
-: Other (necrotizing fasciitis)
Subjective / Review of Systems
Elbow pain stable
Vital Signs / Physical Exam
Vital Signs
Vital Signs
Temp Pulse Resp BP Pulse Ox
97.4 F 61 20 138/82 100
06/25/24 11:16 06/25/24 11:16 06/25/24 11:16 06/25/24 11:16 06/25/24 11:16
Physical Exam
Constitutional: No Acute Distress
Cardiovascular: Regular Rate and S1/S2
Pulmonary: Clear
Gastrointestinal: Soft, Non Tender and Non Distended
Wound: Other (left UE with splint, dressing dry)
Objective Data
Lab Data
Lab Results
06/24/24 05:47
06/24/24 05:47
Estimated Creat Clear 69 ml/min 06/24/24 05:47
Lactic Acid Cancelled 06/21/24 01:56
Total Bilirubin 1.0 mg/dl (0.2-1.3) 06/20/24 13:29
AST 21 U/L (14-36) 06/20/24 13:29
ALT 17 U/L (0-35) 06/20/24 13:29
Alkaline Phosphatase 63 U/L (38-126) 06/20/24 13:29
Most recent labs reviewed.
Micro Results:
06/21/24 16:30 Tissue Culture - Final
Tissue Streptococcus pyogenes
Gram Stain - Final
06/22/24 07:28 Blood Culture - Preliminary
Blood/Venous No Growth in 72 hours- Final report to follow
06/22/24 05:41 Blood Culture - Preliminary
Blood/Venous No Growth in 72 hours- Final report to follow
06/20/24 14:47 Blood Culture - Preliminary
Blood/Venous No Growth in 4 days- Final report to follow
06/21/24 16:30 Anaerobic Culture - Preliminary
Bursa NO ANAEROBES ISOLATED
06/20/24 13:29 Blood Culture - Preliminary
Blood/Venous No Growth in 4 days- Final report to follow
06/21/24 16:30 Wound Culture - Preliminary
Bursa Streptococcus pyogenes
Gram Stain - Preliminary
06/20/24 21:19 Urine Culture - Final
Urine Aerococcus Species
06/20/24 20:03 MRSA Screen - Final
Nose No Methicillin Resistant Staphylococcus aureus isolated.
06/20/24 13:29 Wound Culture - Final
Elbow - Left Streptococcus pyogenes
Gram Stain - Final
06/20/24 16:26 Influenza Types A & B (ELÍAS) - Final
Nasal Swab Negative for Influenza A & B, NAAT
Negative results must be combined with clinical observations
and patient history.
Nucleic Acid Amplification test (NAAT)performed on the
[employer] platform.
[2024-06-25] MEDS: TUMS CHEWABLE TABLET 400 MG PO (15:11)
[2024-06-25] MEDS: NEURONTIN 200 MG PO (22:04)
[2024-06-26] MEDS: ANCEF 10 IV ×2 (00:03→08:42)
[2024-06-26] MEDS: FLUSH (NSS) 2 FLUSH IV (00:04)
[2024-06-26] MEDS: MAALOX 30 ML PO (00:10)
[2024-06-26 03:11] VITALS: BP 162/93
[2024-06-26 05:50] VITALS: BP 142/80
[2024-06-26 05:57] LABS: Hematocrit 33.8 % (37.0-47.0); Hemoglobin 11.2 g/dL (12.0-16.0); Mean Corp Hgb Conc. 33.1 g/dL (33.0-37.0); Mean Corpuscular Hgb 29.4 pg (27.0-31.0); Mean Corpuscular Volume 88.7 fL (81.0-99.0); Mean Platelet Volume 10.6 fL (7.4-10.4); Platelet Count 221 10^3/uL (130-400); Red Blood Cell Count 3.81 10^6/uL (4.20-5.40); Red Cell Dist. Width 14.6 % (11.5-14.5); White Blood Cell Count 10.8 10^3/uL (4.8-10.8)
[2024-06-26 06:25] LABS: Blood Urea Nitrogen 13 mg/dl (7-17); Calcium 8.2 mg/dl (8.4-10.2); Carbon Dioxide 29 mmol/L (22-30); Chloride 102 mmol/L (98-107); Estimated Creatinine Clearance 69 ml/min; Glucose 99 mg/dl (70-99); Sodium 136 mmol/L (135-145); eGFR > 60.00
[2024-06-26 07:30] VITALS: BP 133/79
[2024-06-26] MEDS: HEPARIN 5000 UNITS SC (08:41)
[2024-06-26] MEDS: PROVERA 10 MG PO (08:42)
[2024-06-26] MEDS: DETROL LA 4 MG PO (08:42)
[2024-06-26] MEDS: ESTRACE 1 MG PO (08:42)
--- NOTE | 2024-06-26 09:28 | W.PN.HOSP.TC ---
Today's Communication/Plan
-
Cleared by ID and orthopedic surgery for discharge today
Assessment / Plan
Assessment / Plan
68-year-old female history of migraines, MS presenting with generalized fatigue. Patient states that she lost her balance and fell on June 16 injuring her left elbow but later had increasing pain, swelling, and discharge from the left
elbow.
Assessment:
Left septic olecranon bursitis and cellulitis s/p Left olecranon forearm & bursa incision and debridement, excisional by Dr Thompson on 06/21/24.
Sepsis POA as evidenced by tachycardia, fever 103.7, WBCs 11.7, lactic 2.5,, resolved
Culture Group B streptococcus. s/p Vanco, Meropenem and IV Clindamycin per ID. On IV Ancef now
No fevers.
WBC normalized.
Blood culture NGTD
Appreciate Ortho & ID help.
Per ortho: no change dressing of wound until seen in office. Ice with elevation to control swelling and pain, bear weight as tolerated. Close follow-up with orthopedics Wednesday or Wednesday for wound check and likely discontinue splint in favor of
light dressing/range of motion exercises.
Cleared by ID and orthopedic surgery for discharge on Zyvox through 07/03
Given a prescription for outpatient PT/OT
Follow-up with orthopedic surgery in the office in 1-2 days, and PCP in 1 week
Patient instructed to avoid tyramine-rich foods while on linezolid.
# mild GERD, likely due to opioid, she will try to avoid, use Tylenol
PRN Maalox/ tums are ordered.
# hypokalemia, replaced.
#Hyponatremia
resolved
#Aerococcus UTI
No hematuria or fever. No flank pain.
s/p completed 3 days of vancomycin
#Multiple sclerosis
Primary neurologist at [facility]
DVT prophylaxis: SC heparin
Code: Full
Physical Exam
General: Well Developed, Well Nourished and No Apparent Distress
HEENT: NormoCephalic, Moist mucous membranes and Atraumatic
Respiratory: Clear
Cardiac: S1/S2 and Regular Rhythm; No Murmur or Rub
GI: Soft, Non Tender.
Rectal: no bleeding
Musculoskeletal: No Clubbing, No Cyanosis and Other, dressing left UE, good radial pulse, normal looking left fingers and normal temperature.
Skin: Rash and Other (left arm in cast)
Neuro: AO x 3 and Nonfocal/grossly intact
Psych: Calm
Anticipated Discharge: Today
Subjective/Interval History
-
Date of Service: June 26, 2024
Patient's nausea has resolved. She tolerated her diet. Her elbow pain is improved. No fever, no vomiting. No chest pain, no shortness of breath.
Objective Data
-
Labs:
Laboratory Results
06/26/24
05:26
WBC 10.8
Hgb 11.2 L
Hct 33.8 L
Plt Count 221
Sodium 136
Potassium 4.0
Chloride 102
Carbon Dioxide 29
BUN 13
Creatinine 0.5 L
Glucose 99
Calcium 8.2 L
Vital Signs:
Vital Signs
Temp Pulse Resp BP Pulse Ox
99.2 F 84 16 133/79 97
06/26/24 07:30 06/26/24 07:30 06/26/24 07:30 06/26/24 07:30 06/26/24 07:30
I&O
06/25/24 06/26/24 06/27/24
06:59 06:59 06:59
Intake Total 1320 / 1320 1919
Balance 1320 / 1320 1919
[2024-06-26] MEDS: ZYRTEC 10 MG PO (09:55)
[2024-06-26 11:30] VITALS: BP 130/83
--- NOTE | 2024-06-26 11:43 | CM ---
CM following re: discharge planning.
Reviewed pt's chart, met with pt.
PT and OT evaluations noted - outpatient therapy recommended. Pt is aware, expressed her agreement.
Please provide a script for outpatient PT/OT
D/C plan: home with outpatient PT/OT and family support.
CM will follow with discharge plan updates as needed.
--- NOTE | 2024-06-26 12:38 | W.DCSUMMARY ---
Discharge Summary
Discharge Data
Date of Admission: 06/20/24
Date of Discharge: 06/26/24
-
Pending Results: No
Hospital Course
Discharge diagnosis:
Sepsis
Possible necrotizing fasciitis
Septic bursitis of the left olecranon/elbow
Group a streptococcus bacteremia
Acute urinary tract infection
Multiple sclerosis
Gastroesophageal reflux disease
Hypokalemia
Hyponatremia
Consults: ID, orthopedic surgery
Procedures:
Left olecranon forearm & bursa incision and debridement, excisional by Dr Thompson on 06/21/24.
Hospital course:
69-year-old female with a past medical history of GERD and multiple sclerosis, was admitted for septic bursitis of the left olecranon/elbow with possible necrotizing fasciitis. Patient was seen in conjunction with ID and orthopedic surgery. She
was treated with IV antibiotics. She underwent incision and debridement of the left olecranon and bursa, by Dr. Thompson on 06/21/2024.
She was initially treated with IV vancomycin and meropenem, followed by IV clindamycin. She was then transitioned to IV Ancef. OR cultures grew out GAS. ID recommends that she be discharged on Zyvox 600 mg twice a day through 07/03/2024. She has
been counseled to avoid tyramine rich foods while she is on Zyvox. She was seen in conjunction with PT/OT, who recommends outpatient therapy. She has been provided a prescription.
Patient also had an Enterococcus UTI. She did complete 3 days of vancomycin.
Patient had hypokalemia. This was repleted and resolved.
Patient is medically stable and cleared by both ID and orthopedic surgery for discharge. She needs to follow-up with orthopedic surgery in the office in 1-2 days, and her primary care doctor in 1 week.
Disposition: Home self-care
Discharge planning: Required 43 minutes
Discharge Plan
-
Patient Disposition: Home (Routine Discharge)
Discharge Diagnosis/Procedures: Septic bursitis of the left elbow status post incision and drainage, urinary tract infection, multiple sclerosis
Condition: Fair
Diet: Other diet
Additional Diets: Avoid foods high in tyramine
Activity: As tolerated
Bathing Restrictions: After seen by .
Other Services: PT and OT
Activity Restrictions/Additional Instructions:
Take linezolid 600 mg twice daily through July 03.
Avoid tyramine-rich foods while on linezolid.
Close follow-up with orthopedics Wednesday or Wednesday for wound check and likely discontinue splint in favor of light dressing/range of motion exercises.
Follow-up with your primary care doctor in 1 week.
Foods that are high in tyramine include:
Cheeses:�Strong or aged cheeses like cheddar, Ugandan, Parmesan, blue cheeses, Camembert, feta, and Gorgonzola
Cured meats:�Salami, pepperoni, dry sausages, hot dogs, bologna, and corned beef
Smoked or processed meats:�Smoked fish, caviar, and aged chicken livers
Pickled or fermented foods:�Sauerkraut, kimchi, tofu, miso soup, dan curd, and tempeh
Sauces:�Soy sauce, shrimp sauce, fish sauce, miso, and teriyaki sauce
Alcoholic beverages:�Beer, especially tap or homebrewed beer, red wine, otis, and liqueurs
Fruits and vegetables:�Dried or overripe fruits like raisins or prunes, or overripe bananas or avocados
Yeast products:�Yeast-extract spreads like Marmite and orozco's yeast, or sourdough bread
Other:�Meat tenderizers, meat prepared with tenderizers, and improperly stored or spoiled foods�
Foods that are low in tyramine or tyramine-free include:
Unaged meat
Fresh and properly stored meat, poultry, or fish
Soy beverages
Fresh or canned legumes
Unfermented dairy products like ice cream, sour cream, milk, and yogurt
Unfermented and pasteurized cheeses like cottage cheese, cream cheese, processed cheese, mozzarella, and ricotta
Fresh or frozen fruits and vegetables
Cereals, bread, pasta, and rice�
Referrals:
Griffin Avila MD [Family Provider] - in one week
Giles Thompson MD [Active] - ( Outpatient follow-up in 1 week from [facility] for wound check)
Prescriptions:
New
linezolid 600 mg tablet
600 mg PO BID 8 Days Qty: 16 0RF
Continued
medroxyprogesterone 10 mg Tablet
10 mg PO DAILY
cholecalciferol (vitamin D3) [Vitamin D3] 25 mcg (1,000 unit) Tablet
25 mcg PO DAILY
calcium carbonate 500 mg calcium (1,250 mg) Tablet
500 mg PO DAILY
ascorbic acid (vitamin C) [Vitamin C] 500 mg Tablet
500 mg PO DAILY
gabapentin 100 mg Capsule
100 - 200 mg PO HS
solifenacin 10 mg Tablet
10 mg PO DAILY
therapeutic multivitamin Tablet
1 tab PO DAILY
estradiol 1 mg Tablet
1 mg PO DAILY
ibuprofen [Advil] 200 mg Tablet
400 mg PO Q8HPRN PRN (Reason: mild pain/fever)
Excedrin Migraine 250-250-65 mg Tablet
2 tab PO Q6HPRN PRN (Reason: headache/migraine)
magnesium oxide 400 mg magnesium Tablet
400 mg PO DAILY
Held
rizatriptan 10 mg Tablet,Disintegrating
10 mg PO DAILYPRN PRN (Reason: migraine)
Hold Instructions: Resume on 07/05/24.
Discontinued
clindamycin HCl 300 mg Capsule
300 mg PO TID
Discharge Orders:
Discharge Patient (As Directed); Ordered 06/26/24
Ordered By: Dread Kwok
Discharge Date and Time
Discharge Date/Time: 06/26/24 16:51
Print Language: [place]
--- NOTE | 2024-06-26 15:42 | W.PN.ID1 ---
Date of Service
Date of Service: June 26, 2024
Today's Communication
- can transition to linezolid 600mg po bid twice daily through July 03
Avoid tyramine-rich foods while on linezolid.
- follow up with orthopedics
Assessment / Plan
Possible Necrotizing Fasciitis
Septic Bursitis of left olecranon due to Group A strep s/p I+D
Group A Strep Bacteremia
Allergy to penicillin: hives
MS
- 06/21 OR cultures: GAS
- can transition to linezolid 600mg po bid twice daily through July 03
Avoid tyramine-rich foods while on linezolid.
- follow up with orthopedics
Chief Complaint
-: Other (necrotizing fasciitis)
Subjective / Review of Systems
afebrile
bp stable
tolerating linezolid
Vital Signs / Physical Exam
Vital Signs
Vital Signs
Temp Pulse Resp BP Pulse Ox
98.7 F 100 18 130/83 97
06/26/24 11:30 06/26/24 11:30 06/26/24 11:30 06/26/24 11:30 06/26/24 11:30
Physical Exam
Constitutional: No Acute Distress
Cardiovascular: Regular Rate and S1/S2; Negative Murmur or Rub
Pulmonary: Clear and Symmetric; Negative Wheezes or Rales
Gastrointestinal: Soft, Non Tender, Non Distended and Normal Bowel Sounds
Musculoskeletal: Other (dressing clean, dry, intact)
Skin: Warm and Dry; Negative Rash or Jaundice
Objective Data
Lab Data
Lab Results
06/26/24 05:26
06/26/24 05:26
Estimated Creat Clear 69 ml/min 06/26/24 05:26
Lactic Acid Cancelled 06/21/24 01:56
Total Bilirubin 1.0 mg/dl (0.2-1.3) 06/20/24 13:29
AST 21 U/L (14-36) 06/20/24 13:29
ALT 17 U/L (0-35) 06/20/24 13:29
Alkaline Phosphatase 63 U/L (38-126) 06/20/24 13:29
Most recent labs reviewed.
Micro Results:
06/21/24 16:30 Wound Culture - Final
Bursa Streptococcus pyogenes
Gram Stain - Final
06/21/24 16:30 Anaerobic Culture - Final
Bursa NO ANAEROBES ISOLATED
06/22/24 07:28 Blood Culture - Preliminary
Blood/Venous No Growth in 4 days- Final report to follow
06/22/24 05:41 Blood Culture - Preliminary
Blood/Venous No Growth in 4 days- Final report to follow
06/20/24 14:47 Blood Culture - Final
Blood/Venous No Growth - Final Report
06/20/24 13:29 Blood Culture - Final
Blood/Venous No Growth - Final Report
06/21/24 16:30 Tissue Culture - Final
Tissue Streptococcus pyogenes
Gram Stain - Final
06/20/24 21:19 Urine Culture - Final
Urine Aerococcus Species
06/20/24 20:03 MRSA Screen - Final
Nose No Methicillin Resistant Staphylococcus aureus isolated.
06/20/24 13:29 Wound Culture - Final
Elbow - Left Streptococcus pyogenes
Gram Stain - Final
06/20/24 16:26 Influenza Types A & B (ELÍAS) - Final
Nasal Swab Negative for Influenza A & B, NAAT
Negative results must be combined with clinical observations
and patient history.
Nucleic Acid Amplification test (NAAT)performed on the
[email or web address] platform.
[2024-06-26 16:00] VITALS: BP 130/86
== END 2024-06-26 16:51 | disposition home or self-care (01) | DRG 854 ==
LOC: 3 WEST ACU 16:37
PROVIDERS: Internal Medicine; Registered Nurse; ADMITTING PHYSICIAN Internal Medicine; ATTENDING PHYSICIAN Family Medicine; CONSULT PHYSICIAN Orthopaedic Surgery; CONSULT PHYSICIAN Student in an Organized Health Care Education/Training Program; EMERGENCY PHYSICIAN Emergency Medicine; FAMILY PHYSICIAN Family Medicine
PROC: 0MB40ZZ Excision of Left Elbow Bursa and Ligament, Open Approach (ICD-10-PCS; 2024-06-20)
DX: A40.1 Sepsis due to streptococcus, group B (principal); E87.1 Hypo-osmolality and hyponatremia; L03.114 Cellulitis of left upper limb; N39.0 Urinary tract infection, site not specified; G35 Multiple sclerosis; K21.9 Gastro-esophageal reflux disease without esophagitis; E87.6 Hypokalemia; M71.122 Other infective bursitis, left elbow; Z11.52 Encounter for screening for COVID-19
CPT/HCPCS: 71046; 73070; 80048; 80053; 81003; 81015; 83605; 84443; 85025; 85027; 87040; 87070; 87075; 87077; 87086; 87147; 87176; 87205; 87502; 87811; 93005; 96365; 96366; 97116; 97162; 97166; 99285